=== PATIENT | female | born 1945 | race Caucasian/White ===

== ENCOUNTER → 2016-09-22 | Outpatient (CLI) | payer OTHER ==
[~2016-09-22] MED LIST: KETO10 PO; LEVO100T5 PO; LOSA25TA PO; METF500T PO; SIMV20TA PO
--- NOTE | 2016-09-22 17:56 | RADHPO ---
EXAM DATE/TIME: 09/22/2016 09:33 [place] COMPARISON: No previous studies available for comparison. INDICATIONS : Evaluate for METS. Possible colon cancer. RADIATION DOSE: 7.79 CTDIvol (mGy) MEDICAL HISTORY : None SURGICAL HISTORY : Tubal ligation. ENCOUNTER: Initial ACUITY: 1 day PAIN SCALE: 0/10 LOCATION: chest TECHNIQUE: Volumetric scanning of the chest was performed. Using automated exposure control and adjustment of t he mA and/or kV according to patient size, radiation dose was kept as low as reasonably achievable to obtain optimal diagnostic quality images. FINDINGS: LUNGS: There are several tiny lung nodules, 3-4 mm in size, including a small pleural-based nodule along the anterolateral pleural surface of the right middle lobe, a tiny nodule adjacent to the cardiac pleura l surface of the left upper lobe and a small lesion in the medial left lung base. There is no evidenc e of consolidative infiltrate. PLEURAE: There is no pleural thickening or pleural effusion. MEDIASTINUM: The heart and great vessels demonstrate no acute abnormality. There is no mediastinal or hilar lymph adenopathy. Incidental direct origin of the left vertebral artery from the aortic arch as a variant o f normal anatomy. AXILLAE: Within normal limits. No lymphadenopathy. MUSCULOSKELETAL: Within normal limits for patient age. MISCELLANEOUS: The visualized upper abdominal organs demonstrate no acute abnormality. CONCLUSION: Several tiny lung nodules which can be safely followed. Kevin Carranza MD on September 22, 2016 at 17:47 Board Certified Radiologist. This report was verified electronically.
== END ==
LOC: PHRAD 09:45
PROVIDERS: ATTEND Hospitalist
DX: R93.3 Abnormal findings on diagnostic imaging of other parts of digestive tract (principal); K62.9 Disease of anus and rectum, unspecified
CPT/HCPCS: 71250

== ENCOUNTER 2016-09-29 09:57 | Inpatient (IN) | payer OTHER, MEDICARE ==
[~2016-09-29] VITALS: Ht 157.5 cm; Wt 71.4 kg
[2016-10-03] MEDS ORDERED: METF500T PO (14:24)
[2016-10-03] MEDS ORDERED: LOSA25TA PO (14:24)
[2016-10-03] MEDS ORDERED: SIMV20TA PO (14:24)
[2016-10-03] MEDS ORDERED: LEVO100T5 PO (14:24)
[2016-10-04] MEDS ORDERED: LACTATED RINGER'S 1000 ML IV PRN (12:00)
[2016-10-04] MEDS ORDERED: POVIDONE IODINE 5% (ANTISEPSIS KIT) 4 APPLICATIONS EACH NARE PRN (12:00)
[2016-10-04] MEDS ORDERED: METOPROLOL TARTRATE 25 MG TAB PO PRN (12:00)
[2016-10-04] MEDS ORDERED: CHLORHEXIDINE GLUCONATE 2 % 1 PACK (2 CLOTHS) TOPICAL PRN (12:00)
[2016-10-04] MEDS ORDERED: SODIUM CHLORID 0.9% 500 ML IV PRN (12:00)
[2016-10-04] MEDS ORDERED: INSULIN HUMAN REGULAR 1,000 UNITS/10 ML VIAL SQ PRN (12:00)
[2016-10-04] MEDS ORDERED: METRONIDAZOLE 500 MG/100 ML ISONTONIC SOLN IV SCH (12:00)
[2016-10-04] MEDS ORDERED: ALVIMOPAN 12 MG CAPSULE - On Call PO SCH (12:00)
[2016-10-04] MEDS ORDERED: ceFAZolin 2 GM PREMIX 50 ML IV SCH (12:00)
[2016-10-04 12:10] VITALS: BP 116/62; PULSE 93; RESP 20; TEMP 98; O2SAT 97
[2016-10-04] MEDS ORDERED: BUPIVACAINE/EPINEPHRINE 0.25% PF 30 ML VIAL ONE ×2 (12:55→15:28)
[2016-10-04] MEDS ORDERED: fentaNYL CITRATE 250 MCG/5 ML AMP ONE (13:23)
[2016-10-04] MEDS ORDERED: DICLOFENAC SODIUM 37.5 MG/ML VIAL IV PUSH ONE (13:23)
[2016-10-04] MEDS ORDERED: ACETAMINOPHEN 1000 MG/100 ML VIAL IV ONE (13:24)
[2016-10-04] MEDS ORDERED: PHENYLEPH/NS 1000 MCG/10 ML SYR IV ONE (14:12)
[2016-10-04] MEDS ORDERED: LACTATED RINGER'S 1000 ML INJ 1,000 ML IV ONE (14:12)
[2016-10-04] MEDS ORDERED: ONDANSETRON HCL 4 MG/2 ML VIAL IV PUSH ONE (14:12)
[2016-10-04] MEDS ORDERED: PROPOFOL 200 MG/20 ML AMP IV ONE (14:12)
[2016-10-04] MEDS ORDERED: NEOSTIGMINE 3 MG/3 ML SYR IV ONE (14:12)
[2016-10-04] MEDS ORDERED: Post-op Orders (for Pharmacy) MISC XX ONE (15:55)
--- NOTE | 2016-10-04 16:19 | PD.OP ---
Operative Report Date of Surgery: Oct 04, 2016 Preoperative Diagnosis: colon cancer Postoperative Diagnosis: same Procedure: lap assisted ascending colon resection Anesthesia: general Surgeon: Jeanmarie Ann Electronics Engineer(s): Cassy Becerril MS3 Operation and Findings: large cecal tumor with apparent desmoplastic reaction, adherent omental attachments and shortened mesentery. Terminal ileum, appendix, cecum and ascending colon, proximal transverse colon to pathology. EBL 50 ml. Jeanmarie Ann MD Oct 04, 2016 16:19
[2016-10-04] MEDS: LACTATED RINGER'S 1000 ML INJ 1,000 ML IV SCH (16:25)
[2016-10-04] MEDS ORDERED: SODIUM CHLORIDE 0.9% FLUSH 10 ML FLUSH IV FLUSH PRN (16:30)
[2016-10-04] MEDS ORDERED: MORPHINE SULFATE 4 MG/ML INJ IV PUSH PRN (16:30)
[2016-10-04] MEDS ORDERED: ACETAMINOPHEN/HYDROcodone 325 MG/5 MG TAB PO PRN ×2 (16:30)
[2016-10-04] MEDS ORDERED: MAGNESIUM HYDROXIDE SUSP 30 ML CUP PO PRN (16:30)
[2016-10-04] MEDS ORDERED: ONDANSETRON HCL 4 MG/2 ML VIAL IV PRN (16:30)
[2016-10-04 16:54] VITALS: BP 113/64; PULSE 74; RESP 18; TEMP 96.4; O2SAT 97
[2016-10-04] MEDS: KETOROLAC TROMETHAMINE 30 MG/ML (IVP) VIAL IVP SCH ×2 (17:00→23:07)
[2016-10-04] MEDS ORDERED: DO NOT ADM ANY ANTICOAGULANT DRUGS PRN (17:15)
[2016-10-04] MEDS: metFORMIN HCL 500 MG TAB PO SCH (18:54)
[2016-10-04 20:15] VITALS: BP 125/72; PULSE 79; RESP 18; TEMP 97.1; O2SAT 98
[2016-10-04] MEDS: LOSARTAN 25 MG TAB PO SCH (20:50)
[2016-10-04] MEDS: SODIUM CHLORIDE 0.9% FLUSH 10 ML FLUSH IV FLUSH SCH (20:51)
[2016-10-04] MEDS: ACETAMINOPHEN 1000 MG/100 ML VIAL IV SCH (20:51)
[2016-10-04] MEDS ORDERED: ALVIMOPAN 12 MG CAPSULE PO SCH (21:00)
[2016-10-05 00:15] VITALS: BP 110/57; PULSE 79; RESP 16; TEMP 98.9; O2SAT 93
[2016-10-05] MEDS: ACETAMINOPHEN 1000 MG/100 ML VIAL IV SCH ×4 (02:10→14:59)
[2016-10-05] MEDS: LACTATED RINGER'S 1000 ML INJ 1,000 ML IV SCH ×3 (02:19→20:08)
[2016-10-05 04:25] VITALS: BP 93/52; PULSE 81; RESP 16; TEMP 96.8; O2SAT 93
[2016-10-05] MEDS: KETOROLAC TROMETHAMINE 30 MG/ML (IVP) VIAL IVP SCH ×4 (05:21→23:00)
[2016-10-05] MEDS: LEVOTHYROXINE SODIUM 100 MCG TAB PO SCH (06:00)
[2016-10-05 07:06] LABS: AUTOMATED NEUTROPHIL # 7.3 TH/MM3 (1.8-7.7); BASOPHIL % 0.2 % (0.0-2.0); EOSINOPHIL % 0.2 % (0.0-4.0); HEMATOCRIT 28.1 % (35.0-46.0); HEMO FLAGS DIFF FINAL; LYMPH % 14.3 % (9.0-44.0); LYMPHOCYTE # 1.4 TH/MM3 (1.0-4.8); MEAN CORPUSCULAR HEMOGLOBIN 28.7 PG (27.0-34.0); MEAN CORPUSCULAR HGB CONC 33.4 % (32.0-36.0); MONO % 9.8 % (0.0-8.0); NEUT % 75.5 % (16.0-70.0); PLATELET COUNT 248 TH/MM3 (150-450); RED BLOOD COUNT 3.27 MIL/MM3 (4.00-5.30); RED CELL DISTRIBUTION WIDTH 14.2 % (11.6-17.2); WHITE BLOOD COUNT 9.6 TH/MM3 (4.0-11.0)
[2016-10-05 07:33] LABS: BICARBONATE 27.5 MEQ/L (21.0-32.0); POTASSIUM 3.9 MEQ/L (3.5-5.1)
--- NOTE | 2016-10-05 07:54 | HHI.PR ---
Subjective Subjective Notes doing very well. No pain, in fact preop pain and discomfort is gone. Has tolerated po well, no nausea. Had watery BM. voiding well. Objective Vitals/I&O Vital Signs Date Time Temp Pulse Resp B/P Pulse Ox O2 Delivery O2 Flow Rate FiO2 10/05/16 04:25 96.8 81 16 93/52 93 10/04/16 20:50 Nasal Cannula 2.00 Labs Laboratory Tests Test 10/04/16 10/05/16 11:45 06:46 Blood Type B POSITIVE Antibody Screen NEGATIVE Blood Bank Comment White Blood Count 9.6 Red Blood Count 3.27 Hemoglobin 9.4 Hematocrit 28.1 Mean Corpuscular Volume 86.0 Mean Corpuscular Hemoglobin 28.7 Mean Corpuscular Hemoglobin 33.4 Concent Red Cell Distribution Width 14.2 Platelet Count 248 Mean Platelet Volume 9.0 Neutrophils (%) (Auto) 75.5 Lymphocytes (%) (Auto) 14.3 Monocytes (%) (Auto) 9.8 Eosinophils (%) (Auto) 0.2 Basophils (%) (Auto) 0.2 Neutrophils # (Auto) 7.3 Lymphocytes # (Auto) 1.4 Monocytes # (Auto) 0.9 Eosinophils # (Auto) 0.0 Basophils # (Auto) 0.0 CBC Comment DIFF FINAL Differential Comment Sodium Level 138 Potassium Level 3.9 Chloride Level 103 Carbon Dioxide Level 27.5 Anion Gap 8 Blood Urea Nitrogen 10 Creatinine 0.83 Estimat Glomerular Filtration 68 Rate Random Glucose 118 Calcium Level 8.3 Cardiovascular: Regular Lungs: Clear Abdomen: Non-distended, Non-tender, Other (dressing dry, no drainage. Trocar sites clean and dry, no drainage, no erythema. ) Extremities: No edema, Perfused A/P Assessment and Plan POD 1 s/p lap assisted ascending colectomy. Doing well. Eat and walk today, home hopefully in next 1-2 days. Jeanmarie Ann MD Oct 05, 2016 07:54
[2016-10-05 08:00] VITALS: BP 94/53; PULSE 80; RESP 16; TEMP 97.4; O2SAT 93
[2016-10-05] MEDS: metFORMIN HCL 500 MG TAB PO SCH ×2 (08:37→16:54)
[2016-10-05] MEDS: PRAVASTATIN SOD 40 MG TAB PO SCH (08:37)
[2016-10-05] MEDS: SODIUM CHLORIDE 0.9% FLUSH 10 ML FLUSH IV FLUSH SCH ×2 (09:00→20:13)
[2016-10-05] MEDS: ALVIMOPAN 12 MG CAPSULE - Post-op dosing PO SCH ×2 (09:00→20:13)
--- NOTE | 2016-10-05 10:38 | EKG ---
Date Performed: 10/04/2016 Time Performed: 11:48:25 PTAGE: 71 years EKG: Sinus rhythm NORMAL ECG NO PREVIOUS TRACING DOCTOR: Wendy Bhatti Interpretating Date/Time 10/05/2016 10:37:01
[2016-10-05 12:00] VITALS: BP 105/56; PULSE 80; RESP 16; TEMP 97; O2SAT 95
--- NOTE | 2016-10-05 13:47 | MP ---
cc: VERÓNICA DANIEL M.D. DATE OF SURGERY: 10/04/2016 PREOPERATIVE DIAGNOSIS Cecal colon cancer. POSTOPERATIVE DIAGNOSIS Cecal colon cancer. PROCEDURE Laparoscopic-assisted descending colon resection. SURGEON Dr. Verónica Daniel DIRECTOR SPECIALTY SURGEON Dr. Stuart Jones SECOND DIRECTOR SPECIALTY Cassy Rivas, MS III ANESTHESIA General. 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 She kept it to herself until recently. A CT scan of the abdomen and pelvis was done which showed a 5-6 cm mass at the ileocecal junction highly suspicious for cancer with some enlarged nodes in the mesentery of the colon. There was no evidence of metastatic disease. Colonoscopy demonstrated an ulcerated cecal mass highly suspicious for cancer. She had a PET/CT which showed no distant disease, but definite increased uptake at the cecum and cecal mesentery. Plans were made for operative intervention. INTRAOPERATIVE FINDINGS Large tumorous mass in the cecum. Terminal ileum, appendix, cecum, ascending colon, proximal transverse colon removed and sent to pathology. ESTIMATED BLOOD LOSS 50 mL. DESCRIPTION OF PROCEDURE IN DETAIL The patient was identified as Ciara Harvey, taken to the operating room and placed in a supine position. Sequential compression devices were placed on bilateral lower extremities. Following induction of adequate general endotracheal anesthesia a Arango catheter was placed and the patient's abdomen was prepped and draped in the usual sterile fashion with Betadine. A timeout procedure was performed. Following completion of the timeout procedure to everyone's satisfaction within the room, 0.25% Marcaine with epinephrine was placed at each incision site. A supraumbilical 2 cm vertical incision was carried out with a scalpel. Dissection continued posteriorly to the base of the umbilicus. This was retracted anteriorly and the supraumbilical midline fascia was incised with a scalpel and entry into the peritoneal cavity was facilitated with the surgeon's finger. The [employer] balloon Marcelo trocar was placed in the peritoneal cavity and its balloon inflated with CO2 insufflation until a level of 15 mmHg ensued. Two infraumbilical midline 5 mm trocars were placed in the peritoneal cavity under direct laparoscopic view after incision of the skin with a scalpel. Attention was turned first to identification of the terminal ileum, appendix and cecum. There was an obvious tumorous mass. Adherent fatty tissue to the peritoneal sidewall was taken down with the Harmonic scalpel and the right colon was mobilized along the white line of Toldt using the Harmonic scalpel. A third 5 mm trocar was placed in the right lower quadrant to facilitate retraction and visualization. A site in the transverse colon just proximal to the middle colic vessels was selected and the omentum was dissected free of the colon. There was no real nice plane of tissue in this location but the transverse colon proximally through the hepatic flexure was able to be mobilized using the Harmonic scalpel and retraction. There was about 10 cc blood loss during the mobilization. Once the entire right colon was mobilized to the midline it was determined that the assisted portion of the procedure could proceed. More local anesthetic was placed in the midline above the umbilicus and the incision was extended about 8 cm in length. Hemostasis was controlled with electrocautery and dissection continued posteriorly through the midline fascia. The peritoneum was entered and the peritoneal incision opened the length of the skin incision. The Ramon wound protector was then placed into the wound and the mid transverse colon was brought up through the wound. A site with good blood supply was selected and divided with the linear cutting stapling device, 75 mm stapler. The mesentery was taken down with the Harmonic scalpel. The distal portion and the omentum was replaced in the abdominal cavity. Part of the omentum was stuck to the tumorous site and was divided a couple centimeters away using the Harmonic scalpel. This allowed for delivery of the terminal ileum, appendix, cecum and ascending colon through the wound protector. A site about 10 cm proximal to the ileocecal valve was selected for division. A small mesenteric window was made and the linear cutting stapler device used to divide the bowel. The Harmonic scalpel was used to take down the mesentery. Several 3-0 silk pop-off sutures were required to control a small amount of ooze. The mesentery was then sequentially taken down between Abiola clamps using 2-0 Vicryl ties on the major blood vessels. The specimen was delivered in its entirety and passed onto the back table. The area was irrigated copiously with saline. A functional oohb-pi-zzfq and end-to-end anastomosis was performed using the linear cutting stapling device and the TX stapler. Sutures of 3-0 silk were used to imbricate the staple lines and to take pressure off the most distal staple along the staple line. 3-0 silk sutures were used to close the mesenteric defect. The anastomosis which was patent had apparent excellent blood supply was returned to its normal position in the right lower quadrant of the abdominal cavity and covered with a generous portion of omentum. Irrigation and suction of the right upper quadrant was performed. There was no evidence of bleeding. The wound protector was removed. Prior to removal laparoscopic survey of the entire surface of the liver seen with the laparoscopic was free of any tumorous deposit. No other intra-abdominal palpable abnormalities were identified during the case. The upper midline incision at the fascial level was closed with running #1 single stranded PDS suture. The subcutaneous layer was irrigated copiously with saline. All trocar sites were irrigated with saline. Several interrupted inverted 2-0 Vicryl sutures were placed to approximate the subcutaneous tissue and all skin incisions were approximated with 4-0 Monocryl subcuticular sutures. Dressings were applied with Mastisol, half-inch brown Steri-Strips and a dry sterile dressing. The patient tolerated the procedure without apparent complication. Sponge, needle and instrument counts were correct at the end of the case. MD CLAU Smith/TI /4:15 PM /1:26 PM
[2016-10-05] MEDS ORDERED: ENOXAPARIN SODIUM 40 MG/0.4 ML SYRINGE SQ SCH (15:00)
[2016-10-05 16:15] VITALS: BP 96/53; PULSE 82; RESP 17; TEMP 97.8; O2SAT 94
[2016-10-05 19:50] VITALS: BP 106/62; PULSE 80; RESP 18; TEMP 97.2; O2SAT 96
[2016-10-05] MEDS: LOSARTAN 25 MG TAB PO SCH (20:13)
[2016-10-06 00:30] VITALS: BP 103/62; PULSE 77; RESP 17; TEMP 98; O2SAT 95
[2016-10-06] MEDS: ACETAMINOPHEN 1000 MG/100 ML VIAL IV SCH ×2 (01:08→07:57)
[2016-10-06] MEDS: KETOROLAC TROMETHAMINE 30 MG/ML (IVP) VIAL IVP SCH ×2 (04:29→11:22)
[2016-10-06] MEDS: LEVOTHYROXINE SODIUM 100 MCG TAB PO SCH (04:29)
[2016-10-06 04:30] VITALS: BP 97/58; PULSE 72; RESP 16; TEMP 97.2; O2SAT 94
[2016-10-06] MEDS: PRAVASTATIN SOD 40 MG TAB PO SCH (07:56)
[2016-10-06] MEDS: metFORMIN HCL 500 MG TAB PO SCH (07:57)
[2016-10-06 08:00] VITALS: BP 120/69; PULSE 78; RESP 18; TEMP 98.2; O2SAT 93
[2016-10-06] MEDS: LACTATED RINGER'S 1000 ML INJ 1,000 ML IV SCH (08:03)
[2016-10-06] MEDS: SODIUM CHLORIDE 0.9% FLUSH 10 ML FLUSH IV FLUSH SCH (08:05)
[2016-10-06] MEDS: ALVIMOPAN 12 MG CAPSULE - Post-op dosing PO SCH (08:05)
[2016-10-06] MEDS ORDERED: KETO10 PO (10:53)
--- NOTE | 2016-10-06 11:38 | HHI.DS ---
Discharge Summary Admission Date Oct 04, 2016 at 11:17 Discharge Date: Oct 06, 2016 Admitting Diagnosis colon cancer Procedures lap assisted ascending colectomy Brief History 71 year old woman with several month h/o abdominal pain, GERD symptoms. Workup demonstrated a large cecal mass, plans were made for resection, no evidence of metastatic disease. CBC/BMP: 10/05/16 0646 10/05/16 0646 Significant Findings Laboratory Tests Test 10/05/16 06:46 Red Blood Count 3.27 MIL/MM3 (4.00-5.30) Hemoglobin 9.4 GM/DL (11.6-15.3) Hematocrit 28.1 % (35.0-46.0) Neutrophils (%) (Auto) 75.5 % (16.0-70.0) Monocytes (%) (Auto) 9.8 % (0.0-8.0) Estimat Glomerular Filtration 68 ML/MIN (>89) Rate Random Glucose 118 MG/DL (74-106) Calcium Level 8.3 MG/DL (8.5-10.1) PE at Discharge lungs clear, abdoen soft, non distended, minimal tenderness. dressings/ incisions clean and dry. Hospital Course Pt admitted through [facility], taken to surgery, recovered well. Minimal pain, walking halls, tolerating po well, having BMs and voiding. Desires DC home. Pt Condition on Discharge: Good Discharge Disposition: Discharge Home Discharge Instructions DIET: Follow Instructions for: As Tolerated, No Restrictions Activities you can perform: See Additionl Instruction Other Activity Instructions: Okay to shower tomorrow Pat incision dry Wear abdominal binder at all times Jeanmarie Ann MD Oct 06, 2016 11:38
== END 2016-10-06 11:32 | disposition home or self-care (01) | DRG 331 ==
LOC: HSDI 10-04 11:17 → N06B 10-04 17:42
PROVIDERS: ADMIT Surgery Trauma Surgery; ATTEND Surgery Trauma Surgery
PROC: 07BB4ZZ Excision of Mesenteric Lymphatic, Percutaneous Endoscopic Approach (ICD-10-PCS; 2016-10-04)
PROC: 0DTF4ZZ Resection of Right Large Intestine, Percutaneous Endoscopic Approach (ICD-10-PCS; principal; 2016-10-04 13:21)
DX: C18.0 Malignant neoplasm of cecum (principal); R59.9 Enlarged lymph nodes, unspecified; E11.9 Type 2 diabetes mellitus without complications; I10 Essential (primary) hypertension; E03.9 Hypothyroidism, unspecified
CPT/HCPCS: 80048; 85025; 86850; 86900; 86901; 88309; 93005; 94150; J0131; J0690; J1130; J1650; J1885; J2370; J2405; J2710; J3010; J7120

== ENCOUNTER → 2016-11-01 | Day surgery (SDC) | payer OTHER ==
[~2016-11-01] MED LIST changes: +ACETAMINOPHEN 1000 MG/100 ML VIAL IV ONE; +HEPARIN SODIUM - IV 10,000 UNITS/10 ML VIAL ONE; +LACTATED RINGER'S 1000 ML INJ 1,000 ML ONE; +LIDOCAINE 1%/EPINEPHrine 1:100,000 SOLN 50 ML VIAL ONE; +MIDAZOLAM HCL 2 MG/2 ML VIAL ONE; +ONDANSETRON HCL 4 MG/2 ML VIAL IV PUSH ONE; +PROPOFOL 200 MG/20 ML AMP IV ONE; +SODIUM CHLORIDE 0.9% 20 ML VIAL ONE; +ceFAZolin 2 GM PREMIX 50 ML ONE
--- NOTE | 2016-11-01 08:28 | TN ---
cc: VERÓNICA DANIEL M.D. DATE OF SURGERY 11/01/2016 PREOPERATIVE DIAGNOSIS Stage III colon cancer. POSTOPERATIVE DIAGNOSIS Stage III colon cancer. PROCEDURE Left subclavian Mjubdg-V-Lcjg placement under direct intraoperative fluoroscopy. SURGEON Dr. Verónica Daniel ANESTHESIA Local 1% lidocaine with epinephrine plus TIVA general INDICATIONS This is a very pleasant 71-year-old woman who was recently diagnosed with a colon cancer. She underwent laparoscopic-assisted right colon resection and was found to have a T3, N2a lesion. Recommendations made for chemotherapy. Jvlvnw-L-Yebq placement was requested. INTRAOPERATIVE FINDINGS Successful placement of left subclavian Pyivti-F-Xgvv with tip of catheter in the distal superior vena cava. Port function was tested and there was easy blood return and forward concentrated heparinized saline flush flow through the port. A portable chest x-ray is pending. ESTIMATED BLOOD LOSS Less than 10 mL. DESCRIPTION OF PROCEDURE IN DETAIL The patient is identified as Ciara Harvey, taken to the operating room, placed in the supine position. Sequential compression devices were placed on the bilateral lower extremities. Following IV sedation by Anesthesia, the upper chest and neck were prepped and draped in the usual sterile fashion with Betadine. A time-out procedure was performed. Following completion of the time-out procedure to everyone's satisfaction within the room, 1% lidocaine with epinephrine was injected in the left subclavian position without difficulty. With the patient in the Trendelenburg position, the left subclavian vein was entered without difficulty using introducer needle. Guidewire was advanced through the introducer needle into appropriate position as seen on C-arm fluoroscopy. Incision was made at the guidewire exit site and an Cchmya-S-Qmky pocket developed on the anterior chest wall. The Utnehn-V-Werv, which had been flushed with heparinized saline, was placed into the Pafptb-T-Vrxf pocket with two 2-0 Prolene stay sutures. Catheter was cut to an appropriate length as seen on C-arm fluoroscopy 20 cm. The dilator and dilating sheath were placed over the guidewire. The dilator and guidewire were removed. The catheter was set to a dilating sheath which was then removed. Catheter tip was seen in the distal superior vena cava on C-arm fluoroscopy. The port was tested and there was easy blood return and forward concentrated heparinized saline flush flow through the port. The port pocket was closed in two layers with 3-0 Vicryl and 4-0 Monocryl. Dressing was applied with Mastisol, inch brown Steri-Strips, gauze and Tegaderm. The patient tolerated the procedure without apparent complication. Sponge, needle and instrument counts were correct at the end of the case. MD CLAU Smith/ABRAN /8:15 AM /8:24 AM
== END | disposition home or self-care (01) ==
LOC: ESDC 06:20
PROVIDERS: ATTEND Surgery Trauma Surgery
DX: Z45.2 Encounter for adjustment and management of vascular access device (principal); C18.9 Malignant neoplasm of colon, unspecified
CPT/HCPCS: 00532; 36561; 77001; C1788; J0131; J0690; J1644; J2250; J2405; J3010; J7120

== ENCOUNTER 2017-04-11 12:51 | Inpatient (IN) | payer OTHER, MEDICARE ==
[~2017-04-11] VITALS: Ht 160 cm; Wt 72.0 kg
[~2017-04-11 12:51] MED LIST changes: -ACETAMINOPHEN 1000 MG/100 ML VIAL IV ONE; -HEPARIN SODIUM - IV 10,000 UNITS/10 ML VIAL ONE; -LACTATED RINGER'S 1000 ML INJ 1,000 ML ONE; -LIDOCAINE 1%/EPINEPHrine 1:100,000 SOLN 50 ML VIAL ONE; -MIDAZOLAM HCL 2 MG/2 ML VIAL ONE; -ONDANSETRON HCL 4 MG/2 ML VIAL IV PUSH ONE; -PROPOFOL 200 MG/20 ML AMP IV ONE; -SODIUM CHLORIDE 0.9% 20 ML VIAL ONE; -ceFAZolin 2 GM PREMIX 50 ML ONE
[2017-04-11 12:55] VITALS: BP 132/67; PULSE 93; RESP 18; O2SAT 97
[2017-04-11] MEDS ORDERED: SODIUM CHLORIDE 0.9% FLUSH 10 ML FLUSH IV FLUSH PRN ×2 (13:00→14:15)
[2017-04-11] MEDS ORDERED: FAMOTIDINE 20 MG/2 ML VIAL IV PUSH ONE (13:00)
[2017-04-11] MEDS ORDERED: SODIUM CHLOR 0.9% 1000 ML INJ 1,000 ML IV SCH (13:00)
[2017-04-11] MEDS ORDERED: ONDANSETRON HCL 4 MG/2 ML VIAL IVP ONE (13:00)
[2017-04-11] MEDS ORDERED: ONDA1TAB17 PO (13:02)
[2017-04-11] MEDS ORDERED: METF500T PO (13:02)
[2017-04-11 13:16] VITALS: RESP 16; O2SAT 99
--- NOTE | 2017-04-11 13:16 | PD ---
HPI Chief Complaint: Abdominal Pain Time Seen by Provider: 12:59 Travel History International Travel<30 days: No Contact w/Intl Traveler<30days: No Traveled to known affect area: No History of Present Illness HPI 72-year-old female complains of low abdominal pain and diarrhea. Patient states the symptoms started 4 days ago. Patient states the pain cramping pain localized to lower abdomen. Patient denies any pain radiation. Patient states that she has nausea but no vomiting. Patient denies any blood or mucus in the stool. Patient denies any fever chills. Patient denies any back pain. Patient denied dysuria or frequency. Patient denies any vaginal discharge or bleeding. Patient has history of adenocarcinoma of the cecum. Patient status post surgical resection. Patient is on chemotherapy. Patient also complains of soreness in the throat. Patient has history of diabetes type 2, hypertension , hypothyroidism. Patient status post tubal ligation. PFSH Past Medical History Arthritis: Yes Cancer: Yes (colon) Cardiovascular Problems: No High Cholesterol: Yes Diabetes: Yes Patient Takes Glucophage: Yes Endocrine: Yes Genitourinary: No Hepatitis: No Hiatal Hernia: No Immune Disorder: No Musculoskeletal: Yes (arthritis generalized) Neurologic: No Psychiatric: No Reproductive: No Respiratory: No Thyroid Disease: Yes Past Surgical History Abdominal Surgery: No AICD: No Body Medical Devices: vaginal mesh Cardiac Surgery: No Ear Surgery: No Eye Surgery: No Genitourinary Surgery: No Gynecologic Surgery: Yes (tubal ligation, vaginal mesh) Joint Replacement: No Oral Surgery: Yes (tonsillectomy) Pacemaker: No Thoracic Surgery: No Tonsillectomy: Yes Other Surgery: Yes (colon mass removal) Social History Alcohol Use: No Tobacco Use: No Substance Use: No Allergies-Medications (Allergen,Severity, Reaction): Coded Allergies: No Known Allergies (Unverified Adverse Reaction, Unknown, 04/11/17) Reported Meds & Prescriptions Reported Meds & Active Scripts Active Ketorolac (Ketorolac Tromethamine) 10 Mg Tab 10 Mg PO Q6HR PRN Reported Ondansetron (Ondansetron HCl) 8 Mg Tab 8 Mg PO TID Metformin (Metformin HCl) 500 Mg Tab 500 Mg PO DAILY With a meal Simvastatin 20 Mg Tab 20 Mg PO DAILY Losartan (Losartan Potassium) 25 Mg Tab 25 Mg PO HS Levothyroxine (Levothyroxine Sodium) 100 Mcg Tab 100 Mcg PO DAILY Review of Systems General / Constitutional: No: Fever Eyes: No: Visual changes HENT: No: Headaches Cardiovascular: No: Chest Pain or Discomfort Respiratory: No: Shortness of Breath Gastrointestinal: Positive: Diarrhea, Abdominal Pain Genitourinary: No: Dysuria Musculoskeletal: No: Pain Skin: No Rash Neurologic: No: Weakness Psychiatric: No: Depression Endocrine: No: Polydipsia Hematologic/Lymphatic: No: Easy Bruising Physical Exam Narrative GENERAL: Well-nourished, well-developed patient. SKIN: Focused skin assessment warm/dry. HEAD: Normocephalic. EYES: No scleral icterus. No injection or drainage. NECK: Supple, trachea midline. No JVD or lymphadenopathy. CARDIOVASCULAR: Regular rate and rhythm without murmurs, gallops, or rubs. RESPIRATORY: Breath sounds equal bilaterally. No accessory muscle use. GASTROINTESTINAL: Abdomen soft, nondistended. Patient has mild to moderate tenderness to palpation lower abdomen. No rebound tenderness. No mass. MUSCULOSKELETAL: No cyanosis, or edema. BACK: Nontender without obvious deformity. No CVA tenderness. Neurologic exam normal. Data Data Last Documented VS Vital Signs Date Time Temp Pulse Resp B/P (MAP) Pulse Ox O2 Delivery O2 Flow Rate FiO2 04/11/17 13:16 16 99 Room Air 04/11/17 12:55 93 Orders Orders Complete Blood Count With Diff (04/11/17 13:00) Comprehensive Metabolic Panel (04/11/17 13:00) Lipase (04/11/17 13:00) Prothrombin Time / Inr (Pt) (04/11/17 13:00) Act Partial Throm Time (Ptt) (04/11/17 13:00) Urinalysis - C+S If Indicated (04/11/17 13:00) Ct Abd/Pel W Iv Contrast(Rout) (04/11/17 13:00) Iv Access Insert/Monitor (04/11/17 13:00) Ecg Monitoring (04/11/17 13:00) Oximetry (04/11/17 13:00) Ondansetron Inj (Zofran Inj) (04/11/17 13:00) Sodium Chlor 0.9% 1000 Ml Inj (Ns 1000 M (04/11/17 13:00) Sodium Chloride 0.9% Flush (Ns Flush) (04/11/17 13:00) Famotidine Inj (Pepcid Inj) (04/11/17 13:00) Rotavirus Ag Detection (Stool) (04/11/17 13:00) Enteric Path (Stool) (04/11/17 13:00) C Diff Toxin Pcr (04/11/17 13:00) Admit Order (Ed Use Only) (04/11/17 13:53) Consult Medical Oncology (04/11/17 ) Admit To Inpatient (04/11/17 ) Vital Signs (Adult) Q4H (04/11/17 14:02) Activity Oob With Assistance (04/11/17 14:02) Diet Clear Liquid (04/11/17 Dinner) Sodium Chlor 0.9% 1000 Ml Inj (Ns 1000 M (04/11/17 14:02) Sodium Chloride 0.9% Flush (Ns Flush) (04/11/17 14:15) Sodium Chloride 0.9% Flush (Ns Flush) (04/11/17 21:00) Acetaminophen (Tylenol) (04/11/17 14:15) Ondansetron Inj (Zofran Inj) (04/11/17 14:15) Basic Metabolic Panel (Bmp) (04/12/17 06:00) Complete Blood Count With Diff (04/12/17 06:00) Scd Bilateral/Knee High JCARLOS.BID (04/11/17 14:02) Naloxone Inj (Narcan Inj) (04/11/17 14:15) Magnesium Hydroxide Liq (Milk Of Magnesi (04/11/17 14:15) Sennosides (Senokot) (04/11/17 14:15) Bisacodyl Supp (Dulcolax Supp) (04/11/17 14:15) Lactulose Liq (Lactulose Liq) (04/11/17 14:15) Inpatient Certification (04/11/17 ) Labs Laboratory Tests Test 04/11/17 13:01 White Blood Count 5.6 TH/MM3 Red Blood Count 3.18 MIL/MM3 Hemoglobin 10.9 GM/DL Hematocrit 32.0 % Mean Corpuscular Volume 100.8 FL Mean Corpuscular Hemoglobin 34.2 PG Mean Corpuscular Hemoglobin Concent 34.0 % Red Cell Distribution Width 20.7 % Platelet Count 126 TH/MM3 Mean Platelet Volume 8.8 FL Neutrophils (%) (Auto) 52.3 % Lymphocytes (%) (Auto) 23.1 % Monocytes (%) (Auto) 23.6 % Eosinophils (%) (Auto) 0.5 % Basophils (%) (Auto) 0.5 % Neutrophils # (Auto) 2.9 TH/MM3 Lymphocytes # (Auto) 1.3 TH/MM3 Monocytes # (Auto) 1.3 TH/MM3 Eosinophils # (Auto) 0.0 TH/MM3 Basophils # (Auto) 0.0 TH/MM3 CBC Comment DIFF FINAL Differential Comment Prothrombin Time 10.9 SEC Prothromb Time International Ratio 1.0 RATIO Activated Partial Thromboplast Time 27.7 SEC Blood Urea Nitrogen 9 MG/DL Creatinine 0.80 MG/DL Random Glucose 114 MG/DL Total Protein 7.1 GM/DL Albumin 3.0 GM/DL Calcium Level 8.7 MG/DL Alkaline Phosphatase 174 U/L Aspartate Amino Transf (AST/SGOT) 38 U/L Alanine Aminotransferase (ALT/SGPT) 33 U/L Total Bilirubin 0.5 MG/DL Sodium Level 139 MEQ/L Potassium Level 3.8 MEQ/L Chloride Level 105 MEQ/L Carbon Dioxide Level 25.4 MEQ/L Anion Gap 9 MEQ/L Estimat Glomerular Filtration Rate 71 ML/MIN Lipase 277 U/L MDM Medical Decision Making Medical Screen Exam Complete: Yes Emergency Medical Condition: Yes Interpretation(s) 1405 PM. CBC WBC 5.6. Hemoglobin 10.9 hematocrit 32.0. MCV 1.8. Platelet 126. 52 neutrophil. 23 lymphs. 23 mono. CMP with AST of 38. Alkaline phosphatase 174. Differential Diagnosis Differential diagnosis including side effect of chemotherapy, colitis, gastroenteritis, dehydration, electrolyte imbalance. Narrative Course 72-year-old female with low abdominal pain and diarrhea. History of colon cancer on chemotherapy. Normal saline solution 1 25 cc an hour. Pepcid 20 mg IV. Diagnosis Primary Impression: Gastroenteritis Additional Impressions: Dehydration History of colon cancer Admitting Information Admitting Physician Requests: Admit Fernando Potter MD Apr 11, 2017 13:16
[2017-04-11 13:48] LABS: AUTOMATED NEUTROPHIL # 2.9 TH/MM3 (1.8-7.7); BASOPHIL % 0.5 % (0.0-2.0); EOSINOPHIL % 0.5 % (0.0-4.0); HEMO FLAGS DIFF FINAL; LYMPH % 23.1 % (9.0-44.0); LYMPHOCYTE # 1.3 TH/MM3 (1.0-4.8); MEAN CELL VOLUME 100.8 FL (80.0-100.0); MEAN CORPUSCULAR HEMOGLOBIN 34.2 PG (27.0-34.0); MONO % 23.6 % (0.0-8.0); NEUT % 52.3 % (16.0-70.0); PLATELET COUNT 126 TH/MM3 (150-450); RED BLOOD COUNT 3.18 MIL/MM3 (4.00-5.30); RED CELL DISTRIBUTION WIDTH 20.7 % (11.6-17.2); WHITE BLOOD COUNT 5.6 TH/MM3 (4.0-11.0)
[2017-04-11 13:58] LABS: APTT (PATIENT) 27.7 SEC (24.3-30.1); PROTHROMBIN TIME - PATIENT 10.9 SEC (9.8-11.6)
[2017-04-11 14:00] LABS: ALT (GPT) 33 U/L (10-53); ANION GAP 9 MEQ/L (5-15); AST (GOT) 38 U/L (15-37); BICARBONATE 25.4 MEQ/L (21.0-32.0); BLOOD UREA NITROGEN 9 MG/DL (7-18); CHLORIDE 105 MEQ/L (98-107); GLOMERULAR FILTRATION RATE 71 ML/MIN (>89); POTASSIUM 3.8 MEQ/L (3.5-5.1); SODIUM (NA) 139 MEQ/L (136-145)
[2017-04-11 14:03] LABS: ALKALINE PHOSPHATASE 174 U/L (45-117); TOTAL BILIRUBIN ADULT 0.5 MG/DL (0.2-1.0)
[2017-04-11] MEDS ORDERED: NALOXONE HCL 0.4 MG/ML AMP IV PUSH PRN (14:15)
[2017-04-11] MEDS ORDERED: MAGNESIUM HYDROXIDE SUSP 30 ML CUP PO PRN (14:15)
[2017-04-11] MEDS ORDERED: BISACODYL 10 MG SUPP RECTAL PRN (14:15)
[2017-04-11] MEDS ORDERED: LACTULOSE SYRUP 20 GM/30 ML CUP PO PRN (14:15)
[2017-04-11] MEDS ORDERED: SENNOSIDES 8.6 MG TAB PO PRN (14:15)
[2017-04-11] MEDS ORDERED: ONDANSETRON HCL 4 MG/2 ML VIAL IVP PRN (14:15)
[2017-04-11] MEDS ORDERED: IOHEXOL 350 MG/ML 10 ML VIAL (for RAD DIAG) IVCONTRAST ONE (14:29)
[2017-04-11] MEDS ORDERED: METFORMIN HOLD POST IV CONTRAST SCH (14:30)
--- NOTE | 2017-04-11 14:43 | HHI.HP ---
HPI Service [facility] Primary Care Physician Non-Staff Admission Diagnosis gastroenteritis. Dehydration. History of colon cancer on chemother Diagnoses: Chief Complaint: Abdominal pain, diarrhea. Travel History International Travel<30 Days: No Contact w/Intl Traveler <30 Da: No Traveled to Known Affected Are: No Sepsis Criteria SIRS Criteria (2 or more): Heart rate over 90 History of Present Illness Ms. 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 On 04/08/2017 patient started having sudden abdominal pain mostly in the upper quadrants. Her abdominal pain was mostly dull in nature. She also started having loose diarrhea. On Monday she had multiple episodes of diarrhea. She also could not eat or drink much. She denies any blood or mucus in the diarrhea. She denies any melena as well. She did not have any fever or chills. No recent antibiotics use. Her last chemotherapy was on March 23, 2017. She called her oncologist who suggested that her diarrhea was likely due to the side effect of chemotherapy. Due to persistent symptoms, patient saw her oncologist today and subsequently patient was sent to the emergency department. At the time of this interview, patient denies any chest pain, shortness of breath, fever or chills. Her abdominal pain is minimal but she complains of pain on palpation. Her diarrhea has actually improved today. Review of Systems Except as stated in HPI: all other systems reviewed are Neg Past Family Social History Past Medical History Type 2 diabetes Hyperlipidemia Hypothyroidism Colon cancer, recently diagnosed. Past Surgical History Tonsillectomy Colon surgery due to colon cancer. Reported Medications Ketorolac (Ketorolac Tromethamine) 10 Mg Tab 10 Mg PO Q6HR PRN Reported Ondansetron (Ondansetron HCl) 8 Mg Tab 8 Mg PO TID Metformin (Metformin HCl) 500 Mg Tab 500 Mg PO DAILY With a meal Simvastatin 20 Mg Tab 20 Mg PO DAILY Losartan (Losartan Potassium) 25 Mg Tab 25 Mg PO HS Levothyroxine (Levothyroxine Sodium) 100 Mcg Tab 100 Mcg PO DAILY Allergies: Coded Allergies: No Known Allergies (Unverified Allergy, Unknown, 04/11/17) Family History Father from heart disease at the age of 61. Mom lived to be 97 Social History Patient denies using alcohol, tobacco, illicit drugs. Physical Exam Vital Signs Vital Signs Date Time Temp Pulse Resp B/P (MAP) Pulse Ox O2 Delivery O2 Flow Rate FiO2 04/11/17 13:16 16 99 Room Air 04/11/17 12:55 93 18 132/67 (88) 97 Room Air Physical Exam GENERAL: This is a well-nourished, well-developed patient, in no apparent distress. SKIN: No rashes, ecchymoses or lesions. Warm and dry. HEAD: Atraumatic. Normocephalic. No temporal or scalp tenderness. EYES: Pupils equal round and reactive. No injection or drainage. ENT: Nose without bleeding, purulent drainage or septal hematoma. Airway patent. NECK: Trachea midline. No lymphadenopathy. Supple, nontender, no meningeal signs. CARDIOVASCULAR: Regular rate and rhythm without murmurs, gallops, or rubs. No JVD. RESPIRATORY: Clear to auscultation. Breath sounds equal bilaterally. No wheezes , rales, or rhonchi. GASTROINTESTINAL: Abdomen soft, tender on deep palpation especially on the right and left upper quadrants, nondistended. No guarding. MUSCULOSKELETAL: Extremities without clubbing, cyanosis, or edema. NEUROLOGICAL: Awake and alert. Cranial nerves II through XII intact. No focal neurological deficits. Normal speech. Laboratory Laboratory Tests Test 04/11/17 13:01 White Blood Count 5.6 Red Blood Count 3.18 Hemoglobin 10.9 Hematocrit 32.0 Mean Corpuscular Volume 100.8 Mean Corpuscular Hemoglobin 34.2 Mean Corpuscular Hemoglobin Concent 34.0 Red Cell Distribution Width 20.7 Platelet Count 126 Mean Platelet Volume 8.8 Neutrophils (%) (Auto) 52.3 Lymphocytes (%) (Auto) 23.1 Monocytes (%) (Auto) 23.6 Eosinophils (%) (Auto) 0.5 Basophils (%) (Auto) 0.5 Neutrophils # (Auto) 2.9 Lymphocytes # (Auto) 1.3 Monocytes # (Auto) 1.3 Eosinophils # (Auto) 0.0 Basophils # (Auto) 0.0 CBC Comment DIFF FINAL Differential Comment Prothrombin Time 10.9 Prothromb Time International Ratio 1.0 Activated Partial Thromboplast Time 27.7 Blood Urea Nitrogen 9 Creatinine 0.80 Random Glucose 114 Total Protein 7.1 Albumin 3.0 Calcium Level 8.7 Alkaline Phosphatase 174 Aspartate Amino Transf (AST/SGOT) 38 Alanine Aminotransferase (ALT/SGPT) 33 Total Bilirubin 0.5 Sodium Level 139 Potassium Level 3.8 Chloride Level 105 Carbon Dioxide Level 25.4 Anion Gap 9 Estimat Glomerular Filtration Rate 71 Lipase 277 Result Diagram: 04/11/17 1301 04/11/17 1301 Imaging Last Impressions Abdomen/Pelvis CT 04/11/17 1300 Signed Impressions: Service Date/Time: Tuesday, April 11, 2017 14:18 - CONCLUSION: 1. Postoperative changes involving the right side of the colon with no evidence of obstruction. There is apparent mild inflammatory change in its region with questionable mild bowel wall thickening. This could be infectious or inflammatory. There is no evidence of obstruction. No oral contrast was given limiting the sensitivity of the exam. 2. The liver appears mildly prominent and is inhomogeneous with decreased attenuation. This could represent hepatocellular disease or fatty infiltration. Cristhian Anand MD Caprini VTE Risk Assessment Caprini VTE Risk Assessment: Mod/High Risk (score >= 2) Caprini Risk Assessment Model Point Value = 1 Point Value = 2 Point Value = 3 Point Value = 5 Age 41-60 Minor surgery BMI > 25 kg/m2 Swollen legs Varicose veins or History of unexplained or recurrent spontaneous Oral contraceptives or hormone replacement Sepsis (< 1 month) Serious lung disease, including pneumonia (< 1 month) Abnormal pulmonary function Acute myocardial infarction Congestive heart failure (< 1 month) History of inflammatory bowel disease Medical patient at bed rest Age 61-74 Arthroscopic surgery Major open surgery (> 45 min) Laparoscopic surgery (> 45 min) Malignancy Confined to bed (> 72 hours) Immobilizing plaster cast Central venous access Age >= 75 History of VTE Family history of VTE Factor V Leiden Prothrombin [id number] Lupus anticoagulant Anticardiolipin antibodies Elevated serum homocysteine Heparin-induced thrombocytopenia Other congenital or acquired thrombophilia Stroke (< 1 month) Elective arthroplasty Hip, pelvis, or leg fracture Acute spinal cord injury (< 1 month) Prophylaxis Regimen Total Risk Factor Score Risk Level Prophylaxis Regimen 0-1 Low Early ambulation 2 Moderate Order ONE of the following: *Sequential Compression Device (SCD) *Heparin 5000 units SQ BID 3-4 Higher Order ONE of the following medications: *Heparin 5000 units SQ TID *Enoxaparin/Lovenox 40 mg SQ daily (WT < 150 kg, CrCl > 30 mL/min) *Enoxaparin/Lovenox 30 mg SQ daily (WT < 150 kg, CrCl > 10-29 mL/min) *Enoxaparin/Lovenox 30 mg SQ BID (WT < 150 kg, CrCl > 30 mL/min) AND/OR *Sequential Compression Device (SCD) 5 or more Highest Order ONE of the following medications: *Heparin 5000 units SQ TID (Preferred with Epidurals) *Enoxaparin/Lovenox 40 mg SQ daily (WT < 150 kg, CrCl > 30 mL/min) *Enoxaparin/Lovenox 30 mg SQ daily (WT < 150 kg, CrCl > 10-29 mL/min) *Enoxaparin/Lovenox 30 mg SQ BID (WT < 150 kg, CrCl > 30 mL/min) AND *Sequential Compression Device (SCD) Assessment and Plan Problem List: (1) Adenocarcinoma of cecum ICD Code: C18.0 - Malignant neoplasm of cecum (2) Gastroenteritis ICD Code: K52.9 - Noninfective gastroenteritis and colitis, unspecified Status: Acute (3) Diabetes mellitus ICD Code: E11.9 - Type 2 diabetes mellitus without complications Assessment and Plan Ms. Harvey is a pleasant 72-year-old female with a recent history of adenocarcinoma of cecum stage IIIB who presents to the emergency department due to abdominal pain, diarrhea that started on 04/08/2017. Patient denies any fever or chills. Patient denies any melena or hematochezia. - Probable gastroenteritis - Likely due to chemotherapy. - C. difficile PCR pending as well as other stool studies. - We'll start patient on clear liquid diet as tolerated and normal saline 125 cc per hour. - Her diarrheal symptoms are actually improved today. - If diarrhea persists, we could consider Cipro + Flagyl. For now, observation with supportive care would be reasonable. - Adenocarcinoma of cecum stage IIIB - Patient has finished 6 of her 8 cycles of chemotherapy. - We'll consult medical oncology. - Type 2 diabetes - Patient takes metformin which we'll hold for now since she is getting CT studies. - We'll initiate sliding scale insulin. Goal blood sugar 140-180. - Hyperlipidemia - patient takes Simvastatin. We can continue it on discharge although Lipitor 20mg QHS maybe preferable. Full code. SCDs, Ambulation. Physician Certification 2 Midnight Certification Type: Admission for Inpatient Services Order for Inpatient Services The services are ordered in accordance with Medicare regulations or non- Medicare payer requirements, as applicable. In the case of services not specified as inpatient-only, they are appropriately provided as inpatient services in accordance with the 2-midnight benchmark. Estimated LOS (days): 2 days is the estimated time the patient will need to remain in the hospital, assuming treatment plan goals are met and no additional complications. Post-Hospital Plan: Home Nuris Rosales DO Apr 11, 2017 14:43
--- NOTE | 2017-04-11 15:10 | RADRPT ---
EXAM DATE/TIME: 04/11/2017 14:18 [facility] COMPARISON: No previous studies available for comparison. INDICATIONS : Diffuse abdomen pain in lower right region. IV CONTRAST: 80 cc Omnipaque 350 (iohexol) IV ORAL CONTRAST: No oral contrast ingested. RADIATION DOSE: 6.64 CTDIvol (mGy) MEDICAL HISTORY : Carcinoma, colon. Diabetes mellitus type 2. SURGICAL HISTORY : Tubal ligation. Vaginal mesh sx. ENCOUNTER: Initial ACUITY: 4 - 6 days PAIN SCALE: 3/10 LOCATION: Right lower quadrant TECHNIQUE: Volumetric scanning of the abdomen and pelvis was performed. Using automated exposure control and ad justment of the mA and/or kV according to patient size, radiation dose was kept as low as reasonably achievable to obtain optimal diagnostic quality images. DICOM format image data is available electro nically for review and comparison. FINDINGS: LOWER LUNGS: The visualized lower lungs are clear. LIVER: The liver is mildly prominent and diffusely mildly heterogeneous with decreased attenuation. There is no focal mass or ductal dilatation. SPLEEN: Normal size without lesion. PANCREAS: Within normal limits. KIDNEYS: Normal in size and shape. There is no mass, stone or hydronephrosis. ADRENAL GLANDS: Within normal limits. VASCULAR: There is no aortic aneurysm. BOWEL/MESENTERY: There are postoperative changes involving the right colon with an anastomotic sue. There is appar ent mild inflammatory change involving the mesentery in this region with questionable mild bowel wall thickening and no focal obstruction. There is no free air or focal fluid collection. No oral contras t was given limiting the sensitivity of the exam. The stomach, small bowel, and colon demonstrate no acute abnormality. There is no free intraperitoneal air or fluid. ABDOMINAL WALL: Within normal limits. RETROPERITONEUM: There is no lymphadenopathy. BLADDER: No wall thickening or mass. REPRODUCTIVE: Within normal limits. INGUINAL: There is no lymphadenopathy or hernia. MUSCULOSKELETAL: Within normal limits for patient age. CONCLUSION: 1. Postoperative changes involving the right side of the colon with no evidence of obstruction. There is apparent mild inflammatory change in its region with questionable mild bowel wall thickening. Thi s could be infectious or inflammatory. There is no evidence of obstruction. No oral contrast was give n limiting the sensitivity of the exam. 2. The liver appears mildly prominent and is inhomogeneous with decreased attenuation. This could rep resent hepatocellular disease or fatty infiltration. Cristhian Anand MD on April 11, 2017 at 15:05 Board Certified Radiologist. This report was verified electronically.
[2017-04-11] MEDS: SODIUM CHLOR 0.9% 1000 ML INJ 1,000 ML IV SCH ×2 (15:31→21:27)
[2017-04-11] MEDS: ACETAMINOPHEN 325 MG TAB PO PRN ×2 (15:36→20:09)
[2017-04-11 16:00] VITALS: BP 112/63; PULSE 77; RESP 21; TEMP 98; O2SAT 96
--- NOTE | 2017-04-11 19:33 | MB ---
cc: KAYLEE ANNA MD DATE OF 1945 REASON FOR CONSULTATION 04/11/2017. ONCOLOGIC DIAGNOSIS Adenocarcinoma of the cecum initially diagnosed in September of 2016. Pathologic stage: T3 N2a M0: stage III-B Treatment history to date: The patient is status post laparoscopic right hemicolectomy with resection of the terminal ileum and primary anastomosis performed in September of 2016. Currently on adjuvant systemic therapy with Capecitabine/oxaliplatin. She is status post six cycles of a planned total eighth cycles. CHIEF COMPLAINT The patient reports to three-day history of diarrhea (up to 12 episodes of diarrhea daily for the past two days) associated with abdominal cramps and abdominal pain/tenderness. She also reports nausea and vomiting. HISTORY OF PRESENT ILLNESS Ms. Harvey is a very pleasant 72-year-old female well-known to me from my outpatient practice. Ms. Harvey was diagnosed in September of 2016 with an adenocarcinoma of the cecum after she presented with complaints of right-sided abdominal pain associated with cramping. She underwent a colonoscopy which identified a mass in the cecum. She subsequently underwent systemic staging with PET CT imaging and then underwent surgical resection. After completing surgical resection, she was initiated on adjuvant systemic therapy with capecitabine and oxaliplatin and has been tolerating treatment reasonably well. Following completion of cycle number six, she developed symptoms of nausea, vomiting, abdominal pain and diarrhea. She tells me over the past one week she has barely been able to eat and has in fact lost about seven pounds over this period of time. The patient was seen by me urgently earlier today in my [place] office. She clinically appeared to be dehydrated and on clinical exam, she had tenderness in the right periumbilical area/right lower quadrant. She was referred to the emergency department for further workup and management. Upon presentation to the emergency room, she underwent CT scan of the abdomen with IV contrast. She was found to have apparent mild inflammation changes in the area of the right side of the colon without evidence of obstruction. Infectious/inflammatory etiology was suspected. There was no evidence of obstruction. The liver was noted to be mildly prominent and inhomogeneous likely secondary to hepatocellular disease/fatty liver infiltration. She has been admitted to the hospital for supportive care and further workup and management. It should be noted that since admission, the patient has not had any episodes of diarrhea and in fact reports cramps and what she feels is constipation like sensation. PAST MEDICAL HISTORY 1. Type 2 diabetes. 2. Hypertension, 3. Hypothyroidism. 4. Adenocarcinoma of the cecum. PAST SURGICAL HISTORY 1. Bladder sling, 2. Colonoscopy, 3. Laparoscopic right hemicolectomy with terminal ileum resection. 4. Tubal ligation 5. Infusion port placement. GYNECOLOGIC HISTORY 4 para 4. She is post menopausal. FAMILY HISTORY Mother had melanoma. Father of heart disease. She had two sisters with lymphoma and one niece with colon cancer. SOCIAL HISTORY She is . She lives at home with her in [place]. She is retired. She denies ever having been a smoker. ALLERGIES CODEINE SULFATE. MEDICATIONS Inpatient, 1. Normal saline 125 cc/hour. 2. Tylenol 650 mg p.o. q.4 h as needed for pain and headache. 3. Femotidine 20 mg IV x1. 4. Lactulose 30 mL p.o. daily as needed for severe constipation. 5. Zofran 4 mg IV every 6 hours as needed for nausea and vomiting. REVIEW OF SYSTEMS A 13-point review of systems are obtained. The following are the pertinent positives and negatives: CONSTITUTIONAL: The patient reports fatigue, weakness, loss of appetite. She reports weight loss. HEENT: Denies headaches, blurry vision, difficulty swallowing, soreness in the throat. RESPIRATORY: Denies difficulty breathing, cough or hemoptysis. CARDIOVASCULAR: Denies angina-like chest pain, PND, orthopnea. GI: Please see HPI and chief complaint section. To summarize she reports nausea, abdominal cramps, diarrhea, abdominal pain, loss of appetite. : No complaints. ARTIST MANNEQUIN COLORING: Denies any focal sensory motor deficits. SKIN: No complaints. PHYSICAL EXAMINATION VITAL SIGNS: Temperature 98 degrees Fahrenheit, heart rate 77 beats a minute, respiratory rate 21, blood pressure 112/63, O2 sats 96% on room air. GENERAL APPEARANCE: Ms. Harvey is an elderly lady. She is laying in bed. She appears to be in no acute distress. HEENT: Head atraumatic, normocephalic, conjunctivae a are non-pale, sclerae are anicteric, EOMI, PERRLA, oral exam no pharyngeal erythema. NECK: No palpable cervical or supraclavicular lymphadenopathy. RESPIRATORY: Good air movement bilaterally, no added breath sounds. CARDIOVASCULAR: Regular rate and rhythm, S1-S2. No obvious murmurs, rubs or gallops. ABDOMEN: Thin belly, soft, tender to palpation over the right periumbilical area/right upper quadrant. No organ enlargement is noted, positive bowel sounds. EXTREMITIES: No pretibial edema or calf tenderness. ARTIST MANNEQUIN COLORING: No focal sensory motor deficits. SKIN: Normal. LABORATORY FINDINGS Blood work dated 04/11/2017: WBC count 5.6, hemoglobin 10.9 gm/dl, hematocrit 32%, MCV 101, platelet count 126, absolute neutrophil count is 2.9. Chemistries: Sodium 139, potassium 3.8, chloride 105, bicarb 25.4, BUN nine, creatinine 0.8, random glucose was 144, calcium 8.7, total bilirubin 0.5, AST 38, ALT 33, alkaline phosphatase 174, albumin is three, lipase is 277. IMAGING STUDIES CT scan of the abdomen and pelvis with IV contrast dated 04/11/2017 indicates postsurgical changes of the right colon. Anastomosis is noted. She does appear in that area to have inflammation of the loops of bowel without evidence of obstruction. No masses are noted. Fatty liver infiltration is appreciated due to the inhomogeneous appearance of the liver. ASSESSMENT Ms. Harvey is a 72-year-old female with a history of stage III-B adenocarcinoma of the cecum. She is status post surgical resection and is presently on adjuvant systemic therapy with Xeloda/oxaliplatin. She completed her sixth cycle of treatment with Xeloda late last week (on 04/06/2017). Following that, she reports feeling more than her normal amount of nausea, fatigue, abdominal pain, diarrhea and just feeling malaise. I did speak to her over the past weekend and she reported these symptoms. The patient was recommended increased dose of Zofran and increased oral fluid hydration. Her symptoms worsened and she was asked to come into the emergency department for further workup and evaluation. Clinically, she was dehydrated. Her imaging studies of the abdomen indicate what appears to be inflammatory changes involving the proximal colon. Her diarrhea seems to be acute. It has been ongoing for the past 3 or 4 days at most. Since she has been in the hospital, her diarrhea seems to have resolved spontaneously. She feels better with IV fluid hydration but still has no appetite. RECOMMENDATIONS 1. Adenocarcinoma of the colon: She will resume adjuvant systemic chemotherapy once her acute episode has resolved. 2. Diarrhea: Continue supportive care with IV fluid hydration. The likely etiology is infectious, i.e., either viral infectious or bacterial infectious. Stool specimens have been ordered to rule out C diff colitis. At this point, given the improvement in her symptoms spontaneously, I would not initiate IV antibiotics or oral antibiotics. However, if for symptoms resume she may benefit from oral Metronidazole with or without ciprofloxacin. She may receive loperamide for management of diarrhea. She will be initiated on Lovenox for DVT prophylaxis. I did speak to her porcelain waxer, Dr. Boy Hernandez, about possible GI workup. He will be seeing her in the upcoming day. MD RADHA Salomon/ /6:38 PM /7:06 PM MTDTaylor
[2017-04-11 20:06] VITALS: BP 119/61; PULSE 73; RESP 18; TEMP 98.2; O2SAT 96
[2017-04-11] MEDS: SODIUM CHLORIDE 0.9% FLUSH 10 ML FLUSH IV FLUSH SCH (20:09)
[2017-04-11] MEDS: metroNIDAZOLE 500 MG TAB PO SCH (21:24)
[2017-04-11] MEDS: ENOXAPARIN SODIUM 40 MG/0.4 ML SYRINGE SQ SCH (21:24)
[2017-04-11 23:41] LABS: C. DIFF EPI 027 PRESUMPTIVE NEGATIVE (NEGATIVE)
[2017-04-11 23:52] VITALS: BP 96/55; PULSE 74; RESP 17; TEMP 97.8; O2SAT 97
[2017-04-12 01:34] VITALS: BP 97/56
[2017-04-12] MEDS: SODIUM CHLOR 0.9% 1000 ML INJ 1,000 ML IV SCH ×2 (01:36→10:54)
[2017-04-12 04:36] VITALS: BP 104/62; PULSE 78; RESP 16; TEMP 96.8; O2SAT 96
[2017-04-12 05:19] LABS: BLOOD, URINE NEG (NEG); GLUCOSE,URINE NEG (NEG); KETONE, URINE NEG (NEG); NITRITE,URINE NEG (NEG); URINE COLOR LIGHT-YELLOW (YELLW/STRAW)
[2017-04-12] MEDS: metroNIDAZOLE 500 MG TAB PO SCH (05:27)
[2017-04-12 05:41] LABS: COMMENT (UR) CULT NOT INDICATED; CULTURE IF INDICATED CULT NOT INDICATED
--- NOTE | 2017-04-12 07:28 | PD.ONC.PN ---
Subjective Subjective Remarks Patient seen and examined, vital signs, labs and medications reviewed. Subjectively; patient reports having had 4 episodes of watery bowel movements last night after she took a few sips of her clear liquid dinner. She slept comfortably overnight. The right side of her abdomen remains tender. C. difficile toxin was negative. Objective Data Date Time Temp Pulse Resp B/P (MAP) Pulse Ox O2 Delivery O2 Flow Rate FiO2 04/12/17 04:36 96.8 78 16 104/62 (76) 96 04/12/17 01:34 97/56 (70) 04/11/17 23:52 97.8 74 17 96/55 (69) 97 04/11/17 20:06 98.2 73 18 119/61 (80) 96 04/11/17 16:00 98.0 77 21 112/63 (79) 96 04/11/17 15:16 04/11/17 13:16 16 99 Room Air 04/11/17 12:55 93 18 132/67 (88) 97 Room Air 04/12/17 04/12/17 04/12/17 07:00 15:00 23:00 Intake Total 2098 ml Output Total 1000 ml Balance 1098 ml Result Diagram: 04/11/17 1301 04/11/17 1301 Laboratory Results Laboratory Tests Test 04/11/17 13:01 04/11/17 20:30 04/12/17 04:30 04/12/17 05:51 White Blood Count 5.6 TH/MM3 Red Blood Count 3.18 MIL/MM3 Hemoglobin 10.9 GM/DL Hematocrit 32.0 % Mean Corpuscular Volume 100.8 FL Mean Corpuscular Hemoglobin 34.2 PG Mean Corpuscular Hemoglobin Concent 34.0 % Red Cell Distribution Width 20.7 % Platelet Count 126 TH/MM3 Mean Platelet Volume 8.8 FL Neutrophils (%) (Auto) 52.3 % Lymphocytes (%) (Auto) 23.1 % Monocytes (%) (Auto) 23.6 % Eosinophils (%) (Auto) 0.5 % Basophils (%) (Auto) 0.5 % Neutrophils # (Auto) 2.9 TH/MM3 Lymphocytes # (Auto) 1.3 TH/MM3 Monocytes # (Auto) 1.3 TH/MM3 Eosinophils # (Auto) 0.0 TH/MM3 Basophils # (Auto) 0.0 TH/MM3 CBC Comment DIFF FINAL Differential Comment Prothrombin Time 10.9 SEC Prothromb Time International Ratio 1.0 RATIO Activated Partial Thromboplast Time 27.7 SEC Blood Urea Nitrogen 9 MG/DL Creatinine 0.80 MG/DL Random Glucose 114 MG/DL Total Protein 7.1 GM/DL Albumin 3.0 GM/DL Calcium Level 8.7 MG/DL Alkaline Phosphatase 174 U/L Aspartate Amino Transf (AST/SGOT) 38 U/L Alanine Aminotransferase (ALT/SGPT) 33 U/L Total Bilirubin 0.5 MG/DL Sodium Level 139 MEQ/L Potassium Level 3.8 MEQ/L Chloride Level 105 MEQ/L Carbon Dioxide Level 25.4 MEQ/L Anion Gap 9 MEQ/L Estimat Glomerular Filtration Rate 71 ML/MIN Lipase 277 U/L Stool C. difficile Toxin (PCR) NEGATIVE Stl C. difficile Toxin Epiderm 027 PRESUMPTIVE NEGATIVE Urine Color LIGHT-YELLOW Urine Turbidity CLEAR Urine pH 7.0 Urine Specific [place] 1.009 Urine Protein NEG mg/dL Urine Glucose (UA) NEG mg/dL Urine Ketones NEG mg/dL Urine Occult Blood NEG Urine Nitrite NEG Urine Bilirubin NEG Urine Urobilinogen LESS THAN 2.0 MG/DL Urine Leukocyte Esterase TRACE Urine Amorphous Sediment RARE Microscopic Urinalysis Comment CULT NOT INDICATED Culture Results Microbiology Date/Time Source Procedure Growth Status 04/11/17 20:30 Stool Stool Cryptosporidium Exam Pending Received 04/11/17 20:30 Stool Stool Stool Pus ([facility]) Pending Received 04/11/17 20:30 Stool Stool Giardia Antigen ([facility]) Pending Received 04/11/17 20:30 Stool Stool Pending Received 04/11/17 20:30 Stool Stool Rotavirus Antigen - Final NEGATIVE - ROTAVIRUS ANTIGEN IS ABSEN... Complete Imaging Studies Last 24 hours Impressions Abdomen/Pelvis CT 04/11/17 1300 Signed Impressions: Service Date/Time: Tuesday, April 11, 2017 14:18 - CONCLUSION: 1. Postoperative changes involving the right side of the colon with no evidence of obstruction. There is apparent mild inflammatory change in its region with questionable mild bowel wall thickening. This could be infectious or inflammatory. There is no evidence of obstruction. No oral contrast was given limiting the sensitivity of the exam. 2. The liver appears mildly prominent and is inhomogeneous with decreased attenuation. This could represent hepatocellular disease or fatty infiltration. Cristhian Anand MD Administered Medications Medications (Trade) Dose Ordered Sig/Allie Route PRN Reason Start Time Stop Time Status Last Admin Dose Admin Sodium Chloride 1,000 ml @ 125 mls/hr Q8H IV 04/11/17 14:00 04/12/17 01:36 Acetaminophen (Tylenol) 650 mg Q4H PRN PO Headache, fever 04/11/17 14:15 04/11/17 20:09 Enoxaparin Sodium (Lovenox Inj) 40 mg Q24H SQ 04/11/17 21:00 04/11/17 21:24 Metronidazole (Flagyl) 500 mg Q8HR PO 04/11/17 22:00 04/12/17 05:27 Objective Remarks GENERAL APPEARANCE: Ms. Harvey is an elderly lady. She is laying in bed. She appears to be in no acute distress. HEENT: Head atraumatic, normocephalic, conjunctivae a are non-pale, sclerae are anicteric, EOMI, PERRLA, oral exam no pharyngeal erythema. NECK: No palpable cervical or supraclavicular lymphadenopathy. RESPIRATORY: Good air movement bilaterally, no added breath sounds. CARDIOVASCULAR: Regular rate and rhythm, S1-S2. No obvious murmurs, rubs or gallops. ABDOMEN: Thin belly, soft, tender to palpation over the right periumbilical area/right upper quadrant. No organ enlargement is noted, positive bowel sounds. EXTREMITIES: No pretibial edema or calf tenderness. 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 SKIN: Normal. Assessment/Plan Assessment Ms. Harvey is a 72-year-old female with a history of stage III-B adenocarcinoma of the cecum. She is status post surgical resection and is presently on adjuvant systemic therapy with Xeloda/oxaliplatin. She completed her sixth cycle of treatment with Xeloda late last week (on 04/06/2017). Following that, she reports feeling more than her normal amount of nausea, fatigue, abdominal pain, diarrhea and just feeling malaise. I did speak to her over the past weekend and she reported these symptoms. The patient was recommended increased dose of Zofran and increased oral fluid hydration. Her symptoms worsened and she was asked to come into the emergency department for further workup and evaluation. Clinically, she was dehydrated. Her imaging studies of the abdomen indicate what appears to be inflammatory changes involving the proximal colon. Her diarrhea seems to be acute. It has been ongoing for the past 3 or 4 days at most. Since she has been in the hospital, her diarrhea seems to have resolved spontaneously. She feels better with IV fluid hydration but still has no appetite. Plan 1. Acute diarrhea; stool is negative for C. difficile toxin. Diarrhea seems to have a postprandial pattern. CT abdomen indicates likely colitis involving the proximal colon at the site of primary anastomosis. GI evaluation requested. I will discontinue metronidazole. 2. History of stage IIIB colon adenocarcinoma: Status post resection; presently on adjuvant systemic therapy with Xeloda and Oxaliplatin: Status post 6 cycles. She had been tolerating treatment reasonably well up until this most recent cycle which was completed on 04/06/2017. 3. Continue hydration with IV fluids; normal saline. 4. Lovenox for DVT prophylaxis. Loc Szymanski MD Apr 12, 2017 07:28
[2017-04-12 07:37] LABS: AUTOMATED NEUTROPHIL # 1.9 TH/MM3 (1.8-7.7); BASOPHIL % 0.4 % (0.0-2.0); EOSINOPHIL # 0.1 TH/MM3 (0-0.4); EOSINOPHIL % 1.9 % (0.0-4.0); HEMATOCRIT 29.6 % (35.0-46.0); HEMO FLAGS DIFF FINAL; LYMPHOCYTE # 2.9 TH/MM3 (1.0-4.8); MEAN CELL VOLUME 101.4 FL (80.0-100.0); MEAN CORPUSCULAR HEMOGLOBIN 34.3 PG (27.0-34.0); MEAN CORPUSCULAR HGB CONC 33.8 % (32.0-36.0); MONO % 18.1 % (0.0-8.0); NEUT % 31.6 % (16.0-70.0); PLATELET COUNT 120 TH/MM3 (150-450); RED BLOOD COUNT 2.92 MIL/MM3 (4.00-5.30); RED CELL DISTRIBUTION WIDTH 20.7 % (11.6-17.2)
[2017-04-12] MEDS: LACTOBACILLUS ACIDOPHILUS TAB PO SCH ×3 (07:56→18:10)
[2017-04-12] MEDS: SODIUM CHLORIDE 0.9% FLUSH 10 ML FLUSH IV FLUSH SCH ×2 (07:56→20:48)
[2017-04-12] MEDS: ACETAMINOPHEN 325 MG TAB PO PRN ×2 (07:57→13:19)
[2017-04-12 08:00] VITALS: BP 116/68; PULSE 79; RESP 20; TEMP 96.9; O2SAT 95
[2017-04-12 08:00] LABS: BICARBONATE 25.2 MEQ/L (21.0-32.0)
--- NOTE | 2017-04-12 11:15 | HHI.PR ---
Subjective Remarks Feels better overall but every time she tries to eat or drink, she has diarrhea. Watery, no blood. K is low No abdominal pain at rest. Objective Vitals Vital Signs Date Time Temp Pulse Resp B/P (MAP) Pulse Ox O2 Delivery O2 Flow Rate FiO2 04/12/17 08:00 96.9 79 20 116/68 (84) 95 04/12/17 04:36 96.8 78 16 104/62 (76) 96 04/12/17 01:34 97/56 (70) 04/11/17 23:52 97.8 74 17 96/55 (69) 97 04/11/17 20:06 98.2 73 18 119/61 (80) 96 04/11/17 16:00 98.0 77 21 112/63 (79) 96 04/11/17 15:16 04/11/17 13:16 16 99 Room Air 04/11/17 12:55 93 18 132/67 (88) 97 Room Air I/O 04/11/17 04/11/17 04/11/17 04/12/17 04/12/17 04/12/17 07:00 15:00 23:00 07:00 15:00 23:00 Intake Total 240 ml 2098 ml Output Total 350 ml 1000 ml Balance -110 ml 1098 ml Intake Oral 240 ml 680 ml IV Total 1418 ml Output Urine Total 350 ml 1000 ml # Bowel Movements 5 Result Diagram: 04/12/17 0551 04/12/17 0551 Objective Remarks GENERAL: This is a well-nourished, well-developed patient, in no apparent distress. CARDIOVASCULAR: Normal rate and regular rhythm without murmurs, gallops, or rubs. RESPIRATORY: Good respiratory efforts. Breath sounds equal and clear to auscultation bilaterally. GASTROINTESTINAL: Abdomen soft, non-distended. Mild discomfort to deep palpation over the right lower quadrant. Normal and active bowel sounds. MUSCULOSKELETAL: Extremities without cyanosis, or edema. NEURO: Alert & Oriented x4 to person, place, time, situation. Moves all ext x4 PSYCH: Appropriate mood and affect. A/P Problem List: (1) Adenocarcinoma of cecum ICD Code: C18.0 - Malignant neoplasm of cecum (2) Gastroenteritis ICD Code: K52.9 - Noninfective gastroenteritis and colitis, unspecified Status: Acute (3) Diabetes mellitus ICD Code: E11.9 - Type 2 diabetes mellitus without complications Assessment and Plan 72-year-old female with a recent history of adenocarcinoma of cecum stage IIIB who presents to the emergency department due to abdominal pain, diarrhea that started on 04/08/2017. Patient was seen by her oncologist who advised her to come to the emergency as she appeared dehydrated on exam. - Colitis, diarrhea predominant. Gastroenteritis vs chemotherapy induced. Ct of the abdomen shows some inflammatory changes in the postoperative region. No obstruction. - C. difficile PCR negative. Stool culture is pending. - Continue with supportive care. IVF. Replace electrolytes - Hold off on antibiotics for now. No other signs of systemic infectious process. GI consulted. Appreciated assistance - If no plans for endoscopy by GI, would recommend advancing her diet. Hypokalemia: Secondary to GI loss from diarrhea. - Replace and monitor. - Change IV fluid to half-normal saline +20 of Kcl per liters. - Adenocarcinoma of cecum stage IIIB - Patient has finished 6 of her 8 cycles of chemotherapy. Previously tolerated systemic therapy with Xeloda and Oxaliplatin. Status post 6 cycles - Oncology following - Type 2 diabetes - Patient takes metformin which we'll hold for now since she may need further studies with contrast - We'll initiate sliding scale insulin. Goal blood sugar 140-180. - Hyperlipidemia - patient takes Simvastatin. We can continue it on discharge although Lipitor 20mg QHS maybe preferable. - Hypothyroidism: -Continue Synthroid. Check TSH. - Anemia: Probably related to chronic disease - Check iron deficiency labs, B12, and folate. - Follow H&H Full code. SCDs, Ambulation. DVT PPx: Júnior Vicente MD Apr 12, 2017 11:15
[2017-04-12 12:00] VITALS: BP 134/74; PULSE 75; RESP 20; TEMP 97.4; O2SAT 95
[2017-04-12] MEDS ORDERED: POTASSIUM CHLORIDE 10 MEQ CONTROLLED RELEASE TAB PO ONE (12:40)
[2017-04-12] MEDS ORDERED: GLUCAGON 1 MG/ML VIAL OTHER PRN (15:45)
[2017-04-12] MEDS ORDERED: DEXTROSE 50% IN WATER 50 ML VIAL(D50) IV PUSH PRN (15:45)
[2017-04-12 16:00] VITALS: BP 118/62; PULSE 84; RESP 19; TEMP 97.6; O2SAT 95
--- NOTE | 2017-04-12 16:28 | PD.CONS ---
HPI History of Present Illness This is a 72 year old female with hx DM2, stage 3B adenocarcinoma of the cecum s /p resection who presented with abd pain, weakness, loose stool, nausea. The pain started 5 days ago, in the RLQ near the site she perceives that her colon mass was. Her last chemo treatment was 7 days ago. SHe says usually she would be feeling good this long after chemo but this past week she has felt poorly. She is having loose watery stool and fecal incontinence, seems to be worse after eating. She had some abd pain prior that caused her to seek the workup that subsequently discovered the colon mass. Her last colonoscopy was 09/[address] scan that showed the mass. Denies blood in stool, dark tarry stool, hematemesis. (Earlene Mar) History of Present Illness patient was seen and examined, agree with above note, patient has some nausea and vomitingx1 and RUQ pain, and sever diarrhea so could be gastroenteritis, but with her history, we will plan colon EGD in am. patient agreed. (Boy Hernandez MD) PFSH Past Medical History Type 2 diabetes Hyperlipidemia Hypothyroidism Colon cancer, recently diagnosed. Past Surgical History Tonsillectomy Colon surgery due to colon cancer. (Earlene Mar) Coded Allergies: No Known Allergies (Unverified Allergy, Unknown, 04/11/17) Family History Father from heart disease at the age of 61. Mom lived to be Social History Patient denies using alcohol, tobacco, illicit drugs. (Earlene Mar) Review of Systems Constitutional: DENIES: Fever Eyes: DENIES: Blurred vision Ears, nose, mouth, throat: DENIES: Hearing loss Respiratory: DENIES: Hemoptysis Cardiovascular: DENIES: Chest pain Gastrointestinal: COMPLAINS OF: Abdominal pain, Diarrhea, Nausea, DENIES: Black stools, Bloody stools, Constipation, Vomiting, Hematemesis Genitourinary: DENIES: Hematuria Musculoskeletal: DENIES: Joint Swelling Neurologic: DENIES: Abnormal gait Psychiatric: DENIES: Confusion (Earlene Mar) GI Exam Vitals I&O Vital Signs Date Time Temp Pulse Resp B/P (MAP) Pulse Ox O2 Delivery O2 Flow Rate FiO2 04/12/17 16:00 97.6 84 19 118/62 (80) 95 04/12/17 12:00 97.4 75 20 134/74 (94) 95 04/12/17 08:00 96.9 79 20 116/68 (84) 95 04/12/17 04:36 96.8 78 16 104/62 (76) 96 04/12/17 01:34 97/56 (70) 04/11/17 23:52 97.8 74 17 96/55 (69) 97 04/11/17 20:06 98.2 73 18 119/61 (80) 96 I/O 04/11/17 04/11/17 04/11/17 04/12/17 04/12/17 04/12/17 07:00 15:00 23:00 07:00 15:00 23:00 Intake Total 240 ml 2098 ml Output Total 350 ml 1000 ml Balance -110 ml 1098 ml Intake Oral 240 ml 680 ml IV Total 1418 ml Output Urine Total 350 ml 1000 ml # Bowel Movements 5 Imaging Last Impressions Abdomen/Pelvis CT 04/11/17 1300 Signed Impressions: Service Date/Time: Tuesday, April 11, 2017 14:18 - CONCLUSION: 1. Postoperative changes involving the right side of the colon with no evidence of obstruction. There is apparent mild inflammatory change in its region with questionable mild bowel wall thickening. This could be infectious or inflammatory. There is no evidence of obstruction. No oral contrast was given limiting the sensitivity of the exam. 2. The liver appears mildly prominent and is inhomogeneous with decreased attenuation. This could represent hepatocellular disease or fatty infiltration. Cristhian Anand MD Laboratory Test 04/11/17 20:30 04/12/17 04:30 04/12/17 05:51 Stool C. difficile Toxin (PCR) NEGATIVE Stl C. difficile Toxin Epiderm 027 PRESUMPTIVE NEGATIVE Urine Color LIGHT-YELLOW Urine Turbidity CLEAR Urine pH 7.0 Urine Specific [place] 1.009 Urine Protein NEG mg/dL Urine Glucose (UA) NEG mg/dL Urine Ketones NEG mg/dL Urine Occult Blood NEG Urine Nitrite NEG Urine Bilirubin NEG Urine Urobilinogen LESS THAN 2.0 MG/DL Urine Leukocyte Esterase TRACE Urine Amorphous Sediment RARE Microscopic Urinalysis Comment CULT NOT INDICATED White Blood Count 6.0 TH/MM3 Red Blood Count 2.92 MIL/MM3 Hemoglobin 10.0 GM/DL Hematocrit 29.6 % Mean Corpuscular Volume 101.4 FL Mean Corpuscular Hemoglobin 34.3 PG Mean Corpuscular Hemoglobin Concent 33.8 % Red Cell Distribution Width 20.7 % Platelet Count 120 TH/MM3 Mean Platelet Volume 8.8 FL Neutrophils (%) (Auto) 31.6 % Lymphocytes (%) (Auto) 48.0 % Monocytes (%) (Auto) 18.1 % Eosinophils (%) (Auto) 1.9 % Basophils (%) (Auto) 0.4 % Neutrophils # (Auto) 1.9 TH/MM3 Lymphocytes # (Auto) 2.9 TH/MM3 Monocytes # (Auto) 1.1 TH/MM3 Eosinophils # (Auto) 0.1 TH/MM3 Basophils # (Auto) 0.0 TH/MM3 CBC Comment DIFF FINAL Differential Comment Blood Urea Nitrogen 6 MG/DL Creatinine 0.78 MG/DL Random Glucose 101 MG/DL Calcium Level 8.4 MG/DL Sodium Level 142 MEQ/L Potassium Level 3.0 MEQ/L Chloride Level 107 MEQ/L Carbon Dioxide Level 25.2 MEQ/L Anion Gap 10 MEQ/L Estimat Glomerular Filtration Rate 73 ML/MIN Date/Time Source Procedure Growth Status 04/11/17 20:30 Stool Stool Cryptosporidium Exam Pending Resulted 04/11/17 20:30 Stool Stool Stool Pus ([facility]) - Final RARE WBC Resulted 04/11/17 20:30 Stool Stool Giardia Antigen ([facility]) Pending Resulted Physical Examination HEENT: PERRL; normocephalic; atraumatic; no jaundice. CHEST: CTA CARDIAC: RRR ABDOMEN: Soft, nondistended, RLQ TTP; no hepatosplenomegaly; bowel sounds are present in all four quadrants. EXTREMITIES: No clubbing, cyanosis, or edema. SKIN: Normal; no rash; no jaundice. PIERCER: No focal deficits; alert and oriented times three. (Earlene Mar) Assessment and Plan Plan ASSESSMENT - RLQ pain, loose stool - in the last week RLQ pain, diarrhea with incontinence worse after eating. Some nausea. hx stage 3b colon ca s/p resection small and large bowel 09/[address] Ann stool cx neg so far, c diff neg. Last colonoscopy 09/2016 visualized mass. PLAN - possible colonoscopy, Dr Hernandez and Dr Szymanski to discuss - will make NPO after midnight - cont clears for now - supportive care - await rest of stool cx - further recs to follow This pt seen by myself and Dr Hernandez and this note is written on his behalf (Earlene Mar) Earlene Mar Apr 12, 2017 16:28 Boy Hernandez MD Apr 12, 2017 19:28
[2017-04-12] MEDS: INSULIN ASPART SUPPLEMENTAL SCALE SQ SCH ×2 (16:42→20:51)
[2017-04-12] MEDS: NS + KCL 20 MEQ INJ 1,000 ML IV SCH (18:09)
[2017-04-12] MEDS ORDERED: MAGNESIUM CITRATE SOLN 300 ML BTL PO ONE (20:00)
[2017-04-12 20:25] VITALS: BP 124/81; PULSE 56; RESP 18; TEMP 97.5; O2SAT 96
[2017-04-12] MEDS: ENOXAPARIN SODIUM 40 MG/0.4 ML SYRINGE SQ SCH (20:44)
[2017-04-13 00:07] VITALS: BP 124/72; PULSE 85; RESP 17; TEMP 97.6; O2SAT 96
[2017-04-13] MEDS ORDERED: CHLORHEXIDINE GLUCONATE 2 % 1 PACK (2 CLOTHS) TOPICAL PRN (01:45)
[2017-04-13] MEDS ORDERED: POVIDONE IODINE 5% (ANTISEPSIS KIT) 4 APPLICATIONS EACH NARE PRN (01:45)
[2017-04-13] MEDS ORDERED: LACTATED RINGER'S 1000 ML IV PRN (02:00)
[2017-04-13] MEDS: NS + KCL 20 MEQ INJ 1,000 ML IV SCH (02:48)
[2017-04-13 05:06] VITALS: BP 114/59; PULSE 64; RESP 17; TEMP 97.5; O2SAT 96
[2017-04-13 07:50] VITALS: BP 128/78; PULSE 77; RESP 16; TEMP 97.5; O2SAT 96
--- NOTE | 2017-04-13 07:59 | PD.ONC.PN ---
Subjective Subjective Remarks Patient seen and examined, vital signs, labs and medications reviewed. 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 The patient reports persistent tenderness on the right side of her abdomen, she feels the tenderness is no better or worse since she has been in the hospital. She reports having postprandial diarrhea yesterday after eating Jell-O and taking sips of water. She denies fevers or chills or overt bleeding. Objective Data Date Time Temp Pulse Resp B/P (MAP) Pulse Ox O2 Delivery O2 Flow Rate FiO2 04/13/17 05:06 97.5 64 17 114/59 (77) 96 04/13/17 00:07 97.6 85 17 124/72 (89) 96 04/12/17 20:25 97.5 56 18 124/81 (95) 96 04/12/17 16:00 97.6 84 19 118/62 (80) 95 04/12/17 12:00 97.4 75 20 134/74 (94) 95 04/12/17 08:00 96.9 79 20 116/68 (84) 95 04/13/17 04/13/17 04/13/17 07:00 15:00 23:00 Intake Total 735 ml Balance 735 ml Result Diagram: 04/12/17 0551 04/12/17 0551 Laboratory Results Laboratory Tests Test 04/13/17 07:35 Culture Results Microbiology Date/Time Source Procedure Growth Status 04/11/17 20:30 Stool Stool Cryptosporidium Exam Pending Resulted 04/11/17 20:30 Stool Stool Stool Pus ([facility]) - Final RARE WBC Resulted 04/11/17 20:30 Stool Stool Giardia Antigen ([facility]) Pending Resulted 04/11/17 20:30 Stool Stool - Final NO ENTERIC PATHOGENS DETECTED BY PCR... Complete 04/11/17 20:30 Stool Stool Rotavirus Antigen - Final NEGATIVE - ROTAVIRUS ANTIGEN IS ABSEN... Complete Administered Medications Medications (Trade) Dose Ordered Sig/Allie Route PRN Reason Start Time Stop Time Status Last Admin Dose Admin Sodium Chloride (NS Flush) 2 ml BID IV FLUSH 04/11/17 21:00 04/12/17 07:56 Acetaminophen (Tylenol) 650 mg Q4H PRN PO Headache, fever 04/11/17 14:15 04/12/17 13:19 Enoxaparin Sodium (Lovenox Inj) 40 mg Q24H SQ 04/11/17 21:00 04/11/17 21:24 Lactobacillus Acidophilus (Lactinex) 1 tab TID PO 04/12/17 09:00 04/12/17 18:10 Potassium Chloride/Sodium Chloride 1,000 ml @ 100 mls/hr Q10H IV 04/12/17 16:15 04/13/17 02:48 Objective Remarks GENERAL APPEARANCE: Ms. Harvey is an elderly lady. She is laying in bed. She appears to be in no acute distress. HEENT: Head atraumatic, normocephalic, conjunctivae a are non-pale, sclerae are anicteric, EOMI, PERRLA, oral exam no pharyngeal erythema. NECK: No palpable cervical or supraclavicular lymphadenopathy. RESPIRATORY: Good air movement bilaterally, no added breath sounds. CARDIOVASCULAR: Regular rate and rhythm, S1-S2. No obvious murmurs, rubs or gallops. ABDOMEN: Thin belly, soft, tender to palpation over the right periumbilical area/right upper quadrant. No organ enlargement is noted, positive bowel sounds. EXTREMITIES: No pretibial edema or calf tenderness. 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 SKIN: Normal. Assessment/Plan Assessment Ms. Harvey is a 72-year-old female with a history of stage III-B adenocarcinoma of the cecum. She is status post surgical resection and is presently on adjuvant systemic therapy with Xeloda/oxaliplatin. She completed her sixth cycle of treatment with Xeloda late last week (on 04/06/2017). Following that, she reports feeling more than her normal amount of nausea, fatigue, abdominal pain, diarrhea and just feeling malaise. I did speak to her over the past weekend and she reported these symptoms. The patient was recommended increased dose of Zofran and increased oral fluid hydration. Her symptoms worsened and she was asked to come into the emergency department for further workup and evaluation. Clinically, she was dehydrated. Her imaging studies of the abdomen indicate what appears to be inflammatory changes involving the proximal colon. Her diarrhea seems to be acute. It has been ongoing for the past 3 or 4 days at most. Since she has been in the hospital, her diarrhea seems to have resolved spontaneously. She feels better with IV fluid hydration but still has no appetite. Plan 1. Acute diarrhea; stool is negative for C. difficile toxin. Diarrhea seems to have a postprandial pattern. CT abdomen indicates likely colitis involving the proximal colon at the site of primary anastomosis. GI consultation note reviewed, case discussed with Dr. Virk. Agree with plan to perform colonoscopy later today. We'll await results. 2. History of stage IIIB colon adenocarcinoma: Status post resection; presently on adjuvant systemic therapy with Xeloda and Oxaliplatin: Status post 6 cycles. She had been tolerating treatment reasonably well up until this most recent cycle which was completed on 04/06/2017. 3. Continue hydration with IV fluids; normal saline. 4. Lovenox for DVT prophylaxis. Disposition: Await colonoscopy report. After colonoscopy, if the patient is clear from a GI standpoint to be discharged home and if she is able to tolerate by mouth diet she may be discharged from an oncology standpoint. Loc Szymanski MD Apr 13, 2017 07:59
[2017-04-13] MEDS: INSULIN ASPART SUPPLEMENTAL SCALE SQ SCH ×2 (08:00→12:00)
[2017-04-13 08:03] LABS: HEMATOCRIT 28.5 % (35.0-46.0); MEAN CELL VOLUME 100.7 FL (80.0-100.0); MEAN CORPUSCULAR HEMOGLOBIN 33.8 PG (27.0-34.0); MEAN CORPUSCULAR HGB CONC 33.6 % (32.0-36.0); PLATELET COUNT 110 TH/MM3 (150-450); RED BLOOD COUNT 2.83 MIL/MM3 (4.00-5.30); RED CELL DISTRIBUTION WIDTH 20.3 % (11.6-17.2); REVIEW FLAG FINAL; WHITE BLOOD COUNT 3.9 TH/MM3 (4.0-11.0)
[2017-04-13 08:38] LABS: ANION GAP 10 MEQ/L (5-15); BICARBONATE 23.7 MEQ/L (21.0-32.0); CHLORIDE 109 MEQ/L (98-107); GLOMERULAR FILTRATION RATE 95 ML/MIN (>89); POTASSIUM 3.7 MEQ/L (3.5-5.1); SODIUM (NA) 143 MEQ/L (136-145)
[2017-04-13] MEDS: LACTOBACILLUS ACIDOPHILUS TAB PO SCH ×2 (09:00→13:18)
[2017-04-13 09:08] LABS: BLOOD UREA NITROGEN 3 MG/DL (7-18); FERRITIN 169 NG/ML (8-252)
[2017-04-13 11:12] LABS: FREE T3 1.99 PG/ML (2.18-3.98); FREE T4 1.43 NG/DL (0.76-1.46)
--- NOTE | 2017-04-13 11:32 | HHI.PR ---
Subjective Remarks Patient reports feeling okay today. Still has some right lower quadrant abdominal discomfort. Going for colonoscopy today. Did okay with the prep overnight. Objective Vitals Vital Signs Date Time Temp Pulse Resp B/P (MAP) Pulse Ox O2 Delivery O2 Flow Rate FiO2 04/13/17 07:50 97.5 77 16 128/78 (95) 96 04/13/17 05:06 97.5 64 17 114/59 (77) 96 04/13/17 00:07 97.6 85 17 124/72 (89) 96 04/12/17 20:25 97.5 56 18 124/81 (95) 96 04/12/17 16:00 97.6 84 19 118/62 (80) 95 04/12/17 12:00 97.4 75 20 134/74 (94) 95 I/O 04/12/17 04/12/17 04/12/17 04/13/17 04/13/17 04/13/17 07:00 15:00 23:00 07:00 15:00 23:00 Intake Total 2098 ml 2456 ml 735 ml Output Total 1000 ml 1600 ml Balance 1098 ml 856 ml 735 ml Intake Oral 680 ml 760 ml IV Total 1418 ml 1696 ml 735 ml Output Urine Total 1000 ml 1000 ml Stool Total 600 ml # Voids 4 # Bowel Movements 5 4 Result Diagram: 04/13/1735 04/13/17 0735 Objective Remarks GENERAL: This is a well-nourished, well-developed patient, in no apparent distress. CARDIOVASCULAR: Normal rate and regular rhythm without murmurs, gallops, or rubs. RESPIRATORY: Good respiratory efforts. Breath sounds equal and clear to auscultation bilaterally. GASTROINTESTINAL: Abdomen soft, non-distended. Mild discomfort to deep palpation over the right lower quadrant. Normal and active bowel sounds. MUSCULOSKELETAL: Extremities without cyanosis, or edema. NEURO: Alert & Oriented x4 to person, place, time, situation. Moves all ext x4 PSYCH: Appropriate mood and affect. A/P Problem List: (1) Adenocarcinoma of cecum ICD Code: C18.0 - Malignant neoplasm of cecum (2) Gastroenteritis ICD Code: K52.9 - Noninfective gastroenteritis and colitis, unspecified Status: Acute (3) Diabetes mellitus ICD Code: E11.9 - Type 2 diabetes mellitus without complications Assessment and Plan 72-year-old female with a recent history of adenocarcinoma of cecum stage IIIB who presents to the emergency department due to abdominal pain, diarrhea that started on 04/08/2017. Patient was seen by her oncologist who advised her to come to the emergency as she appeared dehydrated on exam. - Colitis, diarrhea predominant. Gastroenteritis vs chemotherapy induced. Ct of the abdomen shows some inflammatory changes in the postoperative region. No obstruction. - C. difficile PCR negative. Stool culture so far negative. - Continue with supportive care. IVF. Replace electrolytes - Hold off on antibiotics for now. No other signs of systemic infectious process. - Appreciate GI following. Plan for colonoscopy today. Further plans depend on findings. Hypokalemia: Secondary to GI loss from diarrhea. - Replaced. - Change IV fluid to half-normal saline +20 of Kcl per liters. - Adenocarcinoma of cecum stage IIIB - Patient has finished 6 of her 8 cycles of chemotherapy. Previously tolerated systemic therapy with Xeloda and Oxaliplatin. Status post 6 cycles - Oncology following. Depending on colonoscopy findings, clear from oncology standpoint for discharge follow-up outpatient. - Type 2 diabetes - Patient takes metformin which we'll hold for now since she may need further studies with contrast - sliding scale insulin with Accu-Cheks. Goal blood sugar 140-180. - Hyperlipidemia - patient takes Simvastatin. We can continue it on discharge although Lipitor 20mg QHS maybe preferable. - Hypothyroidism: -Continue Synthroid. TSH is mildly elevated. Once her acute issues are resolved, she may benefit from adjustment of Synthroid. Discussed with the patient. Will defer to primary care physician to repeat labs outpatient and adjust Synthroid as needed. - Anemia: Probably related to chronic disease -B-12, folate ok. Iron studies pending - Follow H&H DVT PPx: Lovenox Discharge Planning Pending findings on colonoscopy today. Júnior Lu MD Apr 13, 2017 11:32
--- NOTE | 2017-04-13 12:24 | GIPROC ---
[facility] [address] [facility]. [facility], [address] EGD PROCEDURE REPORT EXAM DATE: 04/13/2017 PATIENT NAME: Ciara Harvey MR #: [id number] BIRTHDATE: 1945 ATTENDING: Hilda Shultz MD ORDER #: [id number] SUPERINTENDENT LAUNDRY: Charles Goodson and Jackelyn Morelos STATUS: inpatient INDICATIONS: The patient is a 72 yr old female here for an EGD due to personal history of malignant esophageal neoplasm PROCEDURE PERFORMED: EGD, diagnostic MEDICATIONS: Per Anesthesia and None. TOPICAL ANESTHETIC: none CONSENT: The patient understands the risks and benefits of the procedure and understands that these risks include, but are not limited to: sedation, allergic reaction, infection, perforation and/or bleeding. Alternative means of evaluation and treatment include, among others: physical exam, x-rays, and/or surgical intervention. The patient elects to proceed with this endoscopic procedure. medical equipment was checked for proper function. Hand hygiene and appropriate measures for infection prevention was taken. After the risks, benefits and alternatives of the procedure were thoroughly explained, Informed consent was verified, confirmed and timeout was successfully executed by the treatment team. The patient was anesthetized with topical anesthesia and the EC-[id number] (Pedi C) endoscope was introduced through the mouth and advanced to the second portion of the duodenum. Retroflexion was performed and was normal The gastroscope was then slowly withdrawn and removed. ESOPHAGUS: The mucosa of the esophagus appeared normal. STOMACH: The mucosa of the stomach appeared normal. DUODENUM: The duodenal mucosa appeared normal in the bulb and second portion of the duodenum. ADVERSE EVENTS: There were no complications. IMPRESSIONS: 1. The esophagus appeared normal 2. The mucosa of the stomach appeared normal 3. Normal duodenal mucosa in the bulb and second portion of the duodenum 4. Retroflexion was performed and was normal RECOMMENDATIONS: No treatment PATIENT CONDITION: stable DISPOSITION: Observation REPEAT EXAM: NONE Hilda Shultz MD eSigned: Hilda Shultz MD 04/13/2017 12:23 PM cc:
--- NOTE | 2017-04-13 12:28 | GIPROC ---
[facility] [address] [facility]. [facility], [address] COLONOSCOPY PROCEDURE REPORT EXAM DATE: 04/13/2017 PATIENT NAME: Ciara Harvey MR #: [id number] BIRTHDATE: 1945 ENDOSCOPIST: Hilda Shultz MD ORDER #: [id number] MARKET MASTER: Charles Goodson and Jackelyn Morelos STATUS: inpatient INDICATIONS: The patient is a 72 yr old female here for a colonoscopy due to follow up for previously diagnosed colon cancer PROCEDURE PERFORMED: Colonoscopy, diagnostic MEDICATIONS: Per Anesthesia and None. PREP QUALITY: fair PREP TYPE:GoLytely ESTIMATED BLOOD LOSS: None CONSENT: The patient understands the risks and benefits of the procedure and understands that these risks include, but are not limited to: sedation, allergic reaction, infection, perforation and/or bleeding. Alternative means of evaluation and treatment include, among others: physical exam, x-rays, and/or surgical intervention. The patient elects to proceed with this endoscopic procedure. medical equipment was checked for proper function. Hand hygiene and appropriate measures for infection prevention was taken. After the risks, benefits and alternatives of the procedure were thoroughly explained, Informed consent was verified, confirmed and timeout was successfully executed by the treatment team. A digital exam revealed no abnormalities of the rectum The Pentax EC-[id number] endoscope was introduced through the anus and advanced to the cecum, which was identified by both the appendix and ileocecal valve. The instrument was then slowly withdrawn as the colon was fully examined. COLON FINDINGS: There was evidence of a prior ileocolonic surgical anastomosis. The colonic mucosa appeared normal in the rectum, sigmoid colon, descending colon, at the splenic flexure, in the transverse colon, and at the hepatic flexure. Retroflexed views revealed internal hemorrhoids and Retroflexed views revealed small internal hemorrhoids The scope was then completely withdrawn from the patient and the procedure terminated. PROCEDURE WITHDRAWAL TIME:8minutes ADVERSE EVENTS: There were no complications. IMPRESSIONS: 1. There was evidence of a prior ileocolonic surgical anastomosis 2. The colonic mucosa appeared normal in the rectum, sigmoid colon, descending colon, at the splenic flexure, in the transverse colon, and at the hepatic flexure 3. Retroflexed views revealed internal hemorrhoids RECOMMENDATIONS: Continue surveillance RECALL: Return 1 year Colonoscopy Hilda Shultz MD eSigned: Hilda Shultz MD 04/13/2017 12:27 PM cc: PATIENT NAME: Ciara Harvey MR#: [id number]
[2017-04-13] MEDS: ACETAMINOPHEN 325 MG TAB PO PRN (13:18)
[2017-04-13 13:25] VITALS: BP 131/80; PULSE 83; RESP 14; TEMP 96.4; O2SAT 94
--- NOTE | 2017-04-13 14:15 | HHI.DCPOC ---
Discharge Care Plan Diagnosis: (1) Gastroenteritis (2) History of colon cancer (3) Diabetes mellitus (4) Dehydration Goals to Promote Your Health * To prevent worsening of your condition and complications * To maintain your health at the optimal level Directions to Meet Your Goals Take your medications as prescribed Follow your dietary instruction Follow activity as directed Keep your appointments as scheduled Take your immunizations and boosters as scheduled If your symptoms worsen call your PCP, if no PCP go to Urgent Care Center or Emergency Room Smoking is Dangerous to Your Health. Avoid second hand smoke Call the 24-hour hour crisis hotline for domestic abuse at Júnior Lu MD Apr 13, 2017 14:15
[2017-04-13] MEDS ORDERED: LOPE2CAP PO (14:22)
--- NOTE | 2017-04-13 14:24 | HHI.DS ---
Discharge Summary Admission Date Apr 11, 2017 at 13:55 Discharge Date: Apr 13, 2017 Admitting Diagnosis gastroenteritis. Dehydration. History of colon cancer on chemother (1) Adenocarcinoma of cecum ICD Code: C18.0 - Malignant neoplasm of cecum (2) Gastroenteritis ICD Code: K52.9 - Noninfective gastroenteritis and colitis, unspecified Status: Acute (3) Diabetes mellitus ICD Code: E11.9 - Type 2 diabetes mellitus without complications Procedures EGD and colonoscopy by Dr. Shultz. Unremarkable Brief History - From Admission History of present illness from the admitting physician Ms. 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 On 04/08/2017 patient started having sudden abdominal pain mostly in the upper quadrants. Her abdominal pain was mostly dull in nature. She also started having loose diarrhea. On Monday she had multiple episodes of diarrhea. She also could not eat or drink much. She denies any blood or mucus in the diarrhea. She denies any melena as well. She did not have any fever or chills. No recent antibiotics use. Her last chemotherapy was on March 23, 2017. She called her oncologist who suggested that her diarrhea was likely due to the side effect of chemotherapy. Due to persistent symptoms, patient saw her oncologist today and subsequently patient was sent to the emergency department. At the time of this interview, patient denies any chest pain, shortness of breath, fever or chills. Her abdominal pain is minimal but she complains of pain on palpation. Her diarrhea has actually improved today. CBC/BMP: 04/13/17 0735 04/13/17 0735 Significant Findings Laboratory Tests Test 04/11/17 13:01 04/11/17 20:30 04/12/17 04:30 04/12/17 05:51 Red Blood Count 3.18 MIL/MM3 (4.00-5.30) 2.92 MIL/MM3 (4.00-5.30) Hemoglobin 10.9 GM/DL (11.6-15.3) 10.0 GM/DL (11.6-15.3) Hematocrit 32.0 % (35.0-46.0) 29.6 % (35.0-46.0) Mean Corpuscular Volume 100.8 FL (80.0-100.0) 101.4 FL (80.0-100.0) Mean Corpuscular Hemoglobin 34.2 PG (27.0-34.0) 34.3 PG (27.0-34.0) Red Cell Distribution Width 20.7 % (11.6-17.2) 20.7 % (11.6-17.2) Platelet Count 126 TH/MM3 (150-450) 120 TH/MM3 (150-450) Monocytes (%) (Auto) 23.6 % (0.0-8.0) 18.1 % (0.0-8.0) Monocytes # (Auto) 1.3 TH/MM3 (0-0.9) 1.1 TH/MM3 (0-0.9) Random Glucose 114 MG/DL (74-106) Albumin 3.0 GM/DL (3.4-5.0) Alkaline Phosphatase 174 U/L (45-117) Aspartate Amino Transf (AST/SGOT) 38 U/L (15-37) Estimat Glomerular Filtration Rate 71 ML/MIN (>89) 73 ML/MIN (>89) Urine Leukocyte Esterase TRACE (NEG) Lymphocytes (%) (Auto) 48.0 % (9.0-44.0) Blood Urea Nitrogen 6 MG/DL (7-18) Calcium Level 8.4 MG/DL (8.5-10.1) Potassium Level 3.0 MEQ/L (3.5-5.1) Thyroid Stimulating Hormone 3rd Gen 11.600 uIU/ML (0.358-3.740) Test 04/13/17 07:35 White Blood Count 3.9 TH/MM3 (4.0-11.0) Red Blood Count 2.83 MIL/MM3 (4.00-5.30) Hemoglobin 9.6 GM/DL (11.6-15.3) Hematocrit 28.5 % (35.0-46.0) Mean Corpuscular Volume 100.7 FL (80.0-100.0) Red Cell Distribution Width 20.3 % (11.6-17.2) Platelet Count 110 TH/MM3 (150-450) Blood Urea Nitrogen 3 MG/DL (7-18) Chloride Level 109 MEQ/L (98-107) Folate GREATER THAN 20.0 NG/ML Free Triiodothyronine (T3) pg/dL 1.99 PG/ML (2.18-3.98) Imaging Last Impressions Abdomen/Pelvis CT 04/11/17 1300 Signed Impressions: Service Date/Time: Tuesday, April 11, 2017 14:18 - CONCLUSION: 1. Postoperative changes involving the right side of the colon with no evidence of obstruction. There is apparent mild inflammatory change in its region with questionable mild bowel wall thickening. This could be infectious or inflammatory. There is no evidence of obstruction. No oral contrast was given limiting the sensitivity of the exam. 2. The liver appears mildly prominent and is inhomogeneous with decreased attenuation. This could represent hepatocellular disease or fatty infiltration. Cristhian Anand MD PE at Discharge GENERAL: This is a well-nourished, well-developed patient, in no apparent distress. CARDIOVASCULAR: Normal rate and regular rhythm without murmurs, gallops, or rubs. RESPIRATORY: Good respiratory efforts. Breath sounds equal and clear to auscultation bilaterally. GASTROINTESTINAL: Abdomen soft, non-distended. Mild discomfort to deep palpation over the right lower quadrant. Normal and active bowel sounds. MUSCULOSKELETAL: Extremities without cyanosis, or edema. NEURO: Alert & Oriented x4 to person, place, time, situation. Moves all ext x4 PSYCH: Appropriate mood and affect. Hospital Course 72-year-old female with a recent history of adenocarcinoma of cecum stage IIIB who presents to the emergency department due to abdominal pain, diarrhea that started on 04/08/2017. Patient was seen by her oncologist who advised her to come to the emergency as she appeared dehydrated on exam. The patient was admitted for colitis, diarrhea predominant. Etiology was unclear given her history of colon cancer. C. difficile PCR was negative. Stool cultures were negative. The patient was seen by gastroenterology. She underwent EGD and colonoscopy which were unremarkable. Diarrhea improved. This was likely a non-bacterial gastroenteritis. The patient was also admitted with electrolyte imbalance, mainly hypokalemia. Electrolytes were replaced. Regarding history of colon cancer, she was followed by her oncologist. She is to follow-up outpatient Other conditions treated include - Type 2 diabetes - Patient takes metformin which was held. She was treated with sliding scale insulin with Accu-Cheks. Metformin resumed on discharge. - Hyperlipidemia -continue home dose simvastatin - Hypothyroidism: -TSH is mildly elevated. Once her acute issues are resolved, she may benefit from adjustment of Synthroid. Discussed with the patient. Will defer to primary care physician to repeat labs outpatient and adjust Synthroid as needed. - Anemia: Probably related to chronic disease -B-12, folate ok. Iron studies pending. This can be followed outpatient. H&H stable. No evidence of active bleeding. I discussed EGD and colonoscopy findings with the patient. If she can tolerate her diet, she can be discharged home today. I also dw GI who cleared her for discharge. Pt Condition on Discharge: Good Discharge Disposition: Discharge Home Discharge Time: <= 30 minutes Discharge Instructions DIET: Follow Instructions for: Heart Healthy Diet Activities you can perform: Regular-No Restrictions Follow up Referrals: PCP Follow-up - 1 Week New Medications: Loperamide (Loperamide) 2 Mg Cap 2 MG PO DIRECTED PRN for DIARRHEA, #10 CAP 0 Refills One capsule after each loose stool. Not to exceed 8 capsules per day. Continued Medications: Levothyroxine (Levothyroxine) 100 Mcg Tab 100 MCG PO DAILY for Thyroid, #30 TAB 0 Refills Losartan (Losartan) 25 Mg Tab 25 MG PO HS for Blood Pressure Management, #30 TAB 0 Refills Metformin (Metformin) 500 Mg Tab 500 MG PO DAILY for Blood Sugar Management, #30 TAB 0 Refills With a meal Ondansetron (Ondansetron) 8 Mg Tab 8 MG PO TID for Nausea/Vomiting, TAB 0 Refills Simvastatin (Simvastatin) 20 Mg Tab 20 MG PO DAILY for Cholesterol Management, #30 TAB 0 Refills Discontinued Medications: Ketorolac (Ketorolac) 10 Mg Tab 10 MG PO Q6HR PRN for PAIN, #10 TAB 0 Refills Júnior Lu MD Apr 13, 2017 14:24
[2017-04-13] MEDS ORDERED: LOSARTAN 25 MG TAB PO SCH (21:00)
[2017-04-14] MEDS ORDERED: LEVOTHYROXINE SODIUM 100 MCG TAB PO SCH (06:00)
[2017-04-14] MEDS ORDERED: PRAVASTATIN SOD 40 MG TAB PO SCH (09:00)
== END 2017-04-13 15:54 | disposition home or self-care (01) | DRG 392 ==
LOC: NEPE 12:51 → NEDA 13:55 → N07B 15:19
PROVIDERS: ADMIT Family Medicine; ATTEND Family Medicine
PROC: 0DJD8ZZ Inspection of Lower Intestinal Tract, Via Natural or Artificial Opening Endoscopic (ICD-10-PCS; principal; 2017-04-13 12:00)
PROC: 0DJ08ZZ Inspection of Upper Intestinal Tract, Via Natural or Artificial Opening Endoscopic (ICD-10-PCS; 2017-04-13 12:00)
DX: K52.9 Noninfective gastroenteritis and colitis, unspecified (principal); C18.0 Malignant neoplasm of cecum; K76.0 Fatty (change of) liver, not elsewhere classified; E86.0 Dehydration; I10 Essential (primary) hypertension; K64.8 Other hemorrhoids; E03.9 Hypothyroidism, unspecified; E11.9 Type 2 diabetes mellitus without complications; D63.8 Anemia in other chronic diseases classified elsewhere; E78.5 Hyperlipidemia, unspecified; E87.6 Hypokalemia; Z79.84 Long term (current) use of oral hypoglycemic drugs
CPT/HCPCS: 74177; 80048; 80053; 81001; 82607; 82728; 82746; 82948; 83690; 84439; 84443; 84481; 85025; 85027; 85610; 85730; 87205; 87328; 87329; 87425; 87493; 87506; 96361; 96374; 96375; J1650; J2405; J3480; J7030; Q9967